=== PATIENT | male | born 1935 | race Asian ===

== ENCOUNTER 2017-02-03 17:51 | Inpatient (IN) | payer MEDICARE, OTHER ==
[~2017-02-03] VITALS: Ht 165.1 cm; Wt 68.1 kg
[2017-02-03] MEDS ORDERED: SOD CHLORIDE 0.9% 1,000 ML IV STA (18:16)
[2017-02-03] MEDS ORDERED: LEVOFLOXACIN 750MG/D5W (PMX) 150 ML IVPB STA (18:18)
--- NOTE | 2017-02-03 18:31 | ERA ---
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 He has also had what seems to be shortness of breath for 2 days without cough. He has had no complaints per , however normally he does not talk much. He was recently admitted to [facility] 12/25-01/02 for similar symptoms. There he was diagnosed with dehydration and acute renal failure but did not require dialysis. He did not have an infection at that time. She states he has not been sleeping well and has been very agitated. She has not noticed any fevers or chills but she has not checked. He is still eating normally but is not having as many bowel movements and is not urinating like he normally does. He did urinate once today. ROS Limited due to patient's altered mental status Medications Home Meds Reported Medications Pramipexole* (Pramipexole*) 1 Mg Tablet, 1 MG PO BID, TAB 02/03/17 Allopurinol* (Allopurinol*) 100 Mg Tablet, 100 MG PO DAILY, TAB 02/03/17 Aspirin* (Aspirin* EC) 81 Mg Tablet.dr, 81 MG PO DAILY, TAB 02/03/17 Carbidopa-Levodopa* (Sinemet*) 25-100 Mg Tab, 1 TAB PO TID, TAB 02/03/17 Cholecalciferol (Vitamin D3) 5,000 Unit/1 Ml Drops, 10 ML PO DAILY, ML 02/03/17 Febuxostat* (Uloric*) 40 Mg Tablet, 40 MG PO DAILY, TAB 02/03/17 Furosemide* (Furosemide*) 40 Mg Tablet, 40 MG PO BID, TAB 02/03/17 Omeprazole* (Omeprazole*) 20 Mg Capsule.dr, 20 MG PO DAILY, #30 CAP 02/03/17 Ursodiol* (Ursodiol*) 300 Mg Capsule, 300 MG PO DAILY, CAP 02/03/17 Benazepril Hcl* (Benazepril Hcl*) 10 Mg Tablet, 10 MG PO DAILY, #30 TAB 02/03/17 Doxazosin Mesylate* (Doxazosin Mesylate*) 2 Mg Tablet, 2 MG PO DAILY, TAB 02/03/17 Quetiapine Fumarate* (Quetiapine Fumarate*) 25 Mg Tablet, 125 MG PO HS, TAB 02/03/17 Amantadine Hcl* (Amantadine Hcl*) 100 Mg Capsule, 100 MG PO BID, #60 CAP 02/03/17 Allergies Allergies: Coded Allergies: No Known Allergy (Unverified , 02/03/17) PMhx/Soc History of Surgery: Yes (gallbladder, prostate) Anesthesia Reaction: No Hx Neurological Disorder: Yes (Alzheimer's, Parkinson's disease) Hx Respiratory Disorders: No Hx Cardiac Disorders: Yes (HTN) Hx Psychiatric Problems: No Hx Miscellaneous Medical Probl: Yes (gout, alzheimers, GERD. CAD) Hx Alcohol Use: No Hx Substance Use: No Hx Tobacco Use: No Smoking Status: Never smoker FmHx Family History: No diabetes Physical Exam Vitals Vital Signs Date Time Temp Pulse Resp B/P Pulse Ox O2 Delivery O2 Flow Rate FiO2 02/03/17 18:09 99.3 93 22 94/64 94 Physical Exam Const: Appears to be in mild distress, hallucinating and reaching for things that are not there, nontoxic Head: Atraumatic Eyes: Normal Conjunctiva, PERRLA ENT: Dry oral mucosa, no intraoral lesions. External ears and nose normal Neck: Supple Resp: Diminished breath sounds bilaterally, however there is poor respiratory effort Cardio: Regular rate and rhythm, no murmurs. Sternotomy scar noted. Abd: Soft, non tender, non distended. Normal bowel sounds Skin: No petechiae or rashes Back: No midline or flank tenderness Ext: No cyanosis, or edema Neur: Awake, alert, mumbling speech, unable to answer any questions, moving all extremities Psych: Anxious, appears to be hallucinating Result Diagram: 02/03/17180902/03/171809 Results 24 hrs Laboratory Tests Test 02/03/17 18:10 02/03/17 18:20 02/03/17 20:20 02/03/17 20:54 White Blood Count 9.210^3/ul Red Blood Count 3.0710^6/ul Hemoglobin 10.0g/dl Hematocrit 30.7% Mean Corpuscular Volume 100.0fl Mean Corpuscular Hemoglobin 32.6pg Mean Corpuscular Hemoglobin Concent 32.6g/dl Red Cell Distribution Width 14.6% Platelet Count 93623^3/UL Mean Platelet Volume 10.9fl Neutrophils % 78.3% Lymphocytes % 12.9% Monocytes % 5.3% Eosinophils % 2.9% Basophils % 0.2% Nucleated Red Blood Cells % 0.0/100WBC Neutrophils # 7.210^3/ul Lymphocytes # 1.210^3/ul Monocytes # 0.510^3/ul Eosinophils # 0.310^3/ul Basophils # 0.010^3/ul Nucleated Red Blood Cells # 0.010^3/ul Prothrombin Time 14.0Sec Prothrombin Time Ratio 1.1 INR International Normalized Ratio 1.08 Activated Partial Thromboplast Time 34.1Sec Sodium Level 145mmol/L Potassium Level 4.2mmol/L Chloride Level 102mmol/L Carbon Dioxide Level 27mmol/L Anion Gap 20 Blood Urea Nitrogen 30mg/dl Creatinine 3.52mg/dl Glucose Level 99mg/dl Calcium Level 10.0mg/dl Total Bilirubin 0.7mg/dl Direct Bilirubin 0.00mg/dl Indirect Bilirubin 0.7mg/dl Aspartate Amino Transf (AST/SGOT) 19IU/L Alanine Aminotransferase (ALT/SGPT) 21IU/L Alkaline Phosphatase 140IU/L Troponin I 0.272ng/ml Total Protein 8.1g/dl Albumin 5.0g/dl Globulin 3.10g/dl Albumin/Globulin Ratio 1.61 Bedside Glucose 85mg/dL Urine Color LT. YELLOW Urine Clarity SL.HAZY Urine pH 6.0 Urine Specific [place] 1.010 Urine Ketones NEGATIVE Urine Nitrite NEGATIVE Urine Bilirubin NEGATIVE Urine Urobilinogen 2.0 E.U./dL Urine Leukocyte Esterase 2+ Urine Microscopic RBC 0-2/HPF Urine WBC Clumps MANY Urine Microscopic WBC >50/HPF Urine Bacteria MANY Urine Hemoglobin TRACE Urine Glucose NEGATIVE% Urine Total Protein NEGATIVE Lactic Acid Level 1.1mmol/L Current Medications Medications (Trade) Dose Ordered Sig/Jaylene Route PRN Reason Start Time Stop Time Status Last Admin Dose Admin Sodium Chloride 1,000 ml @ 1,000 mls/hr Q1H STAT IV 02/03/17 18:16 02/03/17 19:15 DC Levofloxacin/ Dextrose (Levaquin 750 Mg/ D5W 150 ml (Pmx)) 150 ml @ 100 mls/hr ONCE STAT IVPB 02/03/17 18:18 02/03/17 19:47 DC 02/03/17 22:35 Aspirin (Aspirin) 300 mg ONCE ONCE LA 02/03/17 20:30 02/03/17 20:31 DC 02/03/17 22:35 Procedures/MDM EKG: Rate/Rhythm: Normal Sinus Rhythm QRS, ST, T-waves: Right bundle branch block, no changes consistent w/ acute ischemia Impression: No evidence of ischemia or arrhythmia Labs: Mild anemia, hypernatremia, elevated BUN and creatinine, elevated troponin Patient's infectious symptoms have not stabilized and the patient is at risk of rapid decompensation. The patient will be admitted for careful hydration, antibiotic therapy, and infectious source control. Severe Sepsis Assessment: Infectious Source: Pneumonia, UTI End organ damage indicated by: Acute Resp Failure (sat < 92% w/o oxygen) Avian Keeper > 2.0 Severe Sepsis Managment: Blood Cultures X 2 before broad spectrum antibiotics initiated within 3 hours of recognition. 30 ml/kg NS bolus Completed Initial Lactate: normal Repeat Lactate not indicated as initial < 2.0 Critical Care: Time: 40minutes Treatments/Evaluations: Emergent fluid management, while maintaining close respiratory support. Immediate broad spectrum antibiotic therapy. Simultaneous assessment for possible sources in order to direct therapy. Consideration for invasive and chemical support to prevent respiratory or cardiac collapse. Accepting Care Team: Current data and ongoing care discussed. Time: Time of admission Primary Provider: Aung Consulting: none Outstanding Data: none Departure Diagnosis: Primary Impression: Left lower lobe pneumonia Qualified Code: J18.1 - Pneumonia of left lower lobe due to infectious organism Additional Impressions: Acute renal failure superimposed on chronic kidney disease Elevated troponin Condition: Serious TRISH BARON MD Feb 03, 2017 18:31 I considered further perfusion assessment with CVP measurement, SCVO2, bedside ultrasound volume assessment, passive leg raise, trial of further fluid bolus. And proceded with [XOXOXO] Accepting Care Team: Current data and ongoing care discussed. Time: Time of admission Primary Provider: [XOXOXO] Consulting: [XOXOXO] Outstanding Data: none Departure Diagnosis: Primary Impression: Left lower lobe pneumonia Qualified Code: J18.1 - Pneumonia of left lower lobe due to infectious organism Additional Impressions: Acute renal failure superimposed on chronic kidney disease Elevated troponin Condition: Serious EKTRISH SLATRE MD Feb 03, 2017 18:31
[2017-02-03 18:46] LABS: ADD SCAN DIFF NO
[2017-02-03 18:52] LABS: BASOPHILS % 0.2 % (0.0-2.0); EOSINOPHILS # 0.3 10^3/ul (0.0-0.5); EOSINOPHILS % 2.9 % (0.0-7.0); HEMATOCRIT 30.7 % (42.0-52.0); LYMPHOCYTES # 1.2 10^3/ul (0.8-2.9); LYMPHOCYTES % 12.9 % (15.0-51.0); MEAN CORPUSCULAR HEMOGLOBIN 32.6 pg (29.0-33.0); MEAN CORPUSCULAR HGB CONC 32.6 g/dl (32.0-37.0); MEAN PLATELET VOLUME 10.9 fl (7.4-10.4); MONOCYTE # 0.5 10^3/ul (0.3-0.9); MONOCYTES % 5.3 % (0.0-11.0); NEUTROPHIL # 7.2 10^3/ul (1.6-7.5); NEUTROPHILS % 78.3 % (39.0-77.0); PLATELET COUNT 255 10^3/UL (140-415); RED BLOOD COUNT 3.07 10^6/ul (4.70-6.10); RED CELL DISTRIBUTION WIDTH 14.6 % (11.5-14.5); WHITE BLOOD COUNT 9.2 10^3/ul (4.8-10.8)
--- NOTE | 2017-02-03 19:02 | RADRPT ---
PROCEDURE: XR Chest. CLINICAL INDICATION: Altered mental status. TECHNIQUE: PA and Lateral views of the chest were obtained. COMPARISON: None. FINDINGS: Cardiomegaly. Atherosclerotic calcifications in the thoracic aorta. Left lung base air space disea se. No signs of pleural fluid or pneumothorax are seen. The osseous structures and soft tissues are unremarkable. IMPRESSION: Left lung base pneumonia. RPTAT: UU Romain Estrada Physician Date Time Electronically viewed and signed by Romain Estrada Physician on 02/03/2017 19:02 RS/
[2017-02-03 19:05] LABS: INR 1.08; PT RATIO 1.1
[2017-02-03 19:06] LABS: PARTIAL THROMBOPLASTIN TIME 34.1 Sec (25.0-35.0)
[2017-02-03 19:07] LABS: ALBUMIN/GLOBULIN RATIO 1.61; BILIRUBIN,INDIRECT 0.7 mg/dl (0-1.1); BILIRUBIN,TOTAL 0.7 mg/dl (0.2-1.3); CREATININE 3.52 mg/dl (0.61-1.24); POTASSIUM 4.2 mmol/L (3.5-5.1); TOTAL PROTEIN 8.1 g/dl (6.1-8.1)
[2017-02-03] MEDS ORDERED: AMAN100C65 PO (19:12)
[2017-02-03] MEDS ORDERED: DOXA2TAB PO (19:13)
[2017-02-03] MEDS ORDERED: QUET25TA33 PO (19:13)
[2017-02-03] MEDS ORDERED: BENA10TA48 PO (19:14)
[2017-02-03] MEDS ORDERED: URSO300C3 PO (19:14)
[2017-02-03] MEDS ORDERED: OMEP20CA16 PO (19:14)
[2017-02-03] MEDS ORDERED: FURO40TA4 PO (19:15)
[2017-02-03] MEDS ORDERED: FEBU40TA PO (19:16)
[2017-02-03 19:22] LABS: TROPONIN-I 0.272 ng/ml (0.00-0.12)
[2017-02-03] MEDS ORDERED: SIN25100 PO (19:23)
[2017-02-03] MEDS ORDERED: [UNRECOGNIZED DRUG - CODE] PO (19:23)
[2017-02-03] MEDS ORDERED: ASPI-664 PO (19:24)
[2017-02-03] MEDS ORDERED: PRAM1TAB PO (19:24)
[2017-02-03] MEDS ORDERED: ALLO100T PO (19:24)
--- NOTE | 2017-02-03 19:47 | RADRPT ---
PROCEDURE: CT Brain without contrast. CLINICAL INDICATION: Altered mental status TECHNIQUE: A CT of the brain was performed on a [employer] 64-slice CT scanner utilizing axial imaging from the skull base through the vertex without IV contrast. Multiplanar reformatted images were made. Images were reviewed on a PACS workstation. The CTDIvol is 165.19 mGy and the DLP is 15 94.20 mGycm. One of the following 3 dose reduction techniques were used: Automated exposure control; adjustment of the mA and/or kV according to patient size; or use of iterative reconstruction technique. COMPARISON: None available FINDINGS: There is no intracranial hemorrhage, mass effect, or midline shift. No extra-axial fluid collection is seen. The ventricles and sulci are age appropriate. Mild diffuse volume loss is present. Mild decreased attenuation is present in the bilateral subcortical white matter, centrum semiovale, and p eriventricular white matter compatible with mild chronic microvascular ischemic disease. mild vascu lar calcifications are present of the bilateral intracranial internal carotid arteries. The visualized scalp and calvarium are normal. Motion artifact degrades the optimal quality of the study which prompted multiple repeat attempts. The visualized orbits are normal bilaterally. The b ilateral paranasal sinuses, mastoid air cells and middle ear cavities appear clear. IMPRESSION: 1. No evidence of acute intracranial hemorrhage, infarcts, or acute intracranial pathology. 2. Mild chronic microvascular ischemic disease and mild diffuse volume loss 3. Mild atherosclerotic vascular disease RPTAT: HDC .Shala Quiles MD, Date Time Electronically viewed and signed by .Shala Quiles MD, MD on 02/03/2017 19:46 .C/
[2017-02-03] MEDS ORDERED: ASPIRIN 300 MG SUPP PR ONE (20:30)
[2017-02-03 20:32] LABS: ADD UMIC YES; UR BILIRUBIN (Dip) NEGATIVE (NEGATIVE); UR BLOOD (Dip) TRACE (NEGATIVE); UR COLOR LT. YELLOW (YELLOW); UR GLUCOSE (Dip) NEGATIVE (NEGATIVE); UR KETONES (Dip) NEGATIVE (NEGATIVE); UR LEUKOCYTE ESTERASE (Dip) 2+ (NEGATIVE); UR NITRITE (Dip) NEGATIVE (NEGATIVE); UR TOTAL PROTEIN (Dip) NEGATIVE (NEGATIVE); UR UROBILINOGEN (Dip) 2.0 E.U./dL (0.1-1.0)
[2017-02-03 21:18] LABS: UR CLARITY SL.HAZY (CLEAR); URINE RBCS 0-2 /HPF (0)
[2017-02-03 21:19] LABS: UR BACTERIA MANY
[2017-02-03] MEDS ORDERED: ONDANSETRON 4 MG INJ IV PRN (21:30)
[2017-02-03] MEDS ORDERED: ACETAMINOPHEN 325 MG TAB PO PRN (21:30)
[2017-02-03 23:46] VITALS: Ht 165.1 cm; Wt 68.1 kg
[2017-02-03 23:51] VITALS: BP 114/56; RESP 19
[2017-02-04] VITALS (12 sets, daily range): BP systolic 105–160; BP diastolic 55–64; PULSE 79–112; RESP 16–19
[2017-02-04] MEDS ORDERED: NACL 0.9% 3 ML SYG IV SCH
[2017-02-04] MEDS ORDERED: ONDANSETRON 4 MG INJ IV PRN
[2017-02-04] MEDS ORDERED: VANCOMYCIN IV PER PHARMACY XX SCH
[2017-02-04 00:32] LABS: CK-MB 2.03 ng/ml (0.0-2.4); TROPONIN-I 0.298 ng/ml (0.00-0.12)
[2017-02-04] MEDS ORDERED: VANCOMYCIN 1.25 GM in SOD CHLORIDE 0.9% 250 ML IVPB ONE (01:00)
[2017-02-04] MEDS ORDERED: LORAZEPAM 2 MG INJ IV ONE (02:00)
[2017-02-04] MEDS: SOD CHLORIDE 0.9% 1,000 ML IV SCH ×2 (02:23→19:42)
[2017-02-04] MEDS ORDERED: HALOPERIDOL 5 MG INJ IV ONE ×2 (03:49→06:00)
--- NOTE | 2017-02-04 05:14 | HP ---
Date/Time of Note Date/Time of Note DATE: 02/04/17 TIME: 04:56 Assessment/Plan VTE Prophylaxis VTE Prophylaxis Intervention: SCD's Lines/Catheters IV C[facility]ter Type [facility]from [facility]): Peripheral IV Assessment/Plan Chief Complaint/Hosp Course This is an 81-year-old male being admitted to the [facility] floor for: #1 altered mental status: This likely is multifactorial secondary to patient's underlying Parkinson's disease as well as possible underlying infections at this time. Patient is a DNR. At the current time we will treat for the underlying pneumonia/UTI. With IV antibiotics. Provide IV fluid hydration. Swallow evaluation. #2 pneumonia: Chest x-ray shows infiltrate in the left lower lung field. At the current time patient is afebrile with normal white blood cell count. Though the is unsure whether the patient has received antibiotics within the last 90 days since he has been in the hospital within the past 90 days. Right now will cover for hospital-acquired pneumonia. Will put patient on Levaquin and vancomycin renally dosed. #3 urinary tract infection: Patient has positive urinalysis. Patient currently on Levaquin right now. #4 elevated troponins: does state that she has a multiple times and he denied any further chest pain. Will continue to trend troponins. This likely could be secondary to patient's underlying chronic kidney disease. However, secondary to his history will get cardiology consult. #5 Parkinson's: At the current time will hold patient's current medications until patient passes swallow eval. #6 coronary artery disease: Patient is status post CABG. Will resume home medications once patient is able to tolerate p.o. via swallow eval. #7 chronic kidney disease: Patient has a creatinine of 3.52, states that during his last hospital stay it was thought that he may have needed dialysis however he ended up not needing to go under dialysis. Will consult nephrology for further management. Renally dose medications. #8 DVT and GI prophylaxis: SCDs, Protonix Further treatment strategy will be implemented as per the clinical course. Of note patient is DNR. The did bring advance directives with her. Patient also is not to have any tube feeding as per the advance directive, however any further medical management needs to be discussed with the . Problems: HPI/ROS Admit Date/Time Admit Date/Time Feb 03, 2017 at 21:10 Hx of Present Illness Chief complaint: Altered mental status 3 days 81-year-old male with a history of CAD status post CABG with CHF, CKD stage III , hyperlipidemia, hypertension and severe Parkinson's disease brought in by ambulance with his for altered mental status for the past 2-3 days. He has also had what seems to be shortness of breath for 2 days without cough. He has had no complaints per , however normally he does not talk much. He was recently admitted to [facility] 12/25-01/02 for similar symptoms. There he was diagnosed with dehydration and acute renal failure but did not require dialysis. He did not have an infection at that time. She states he has not been sleeping well and has been very agitated. She has not noticed any fevers or chills but she has not checked. He is still eating normally but is not having as many bowel movements and is not urinating like he normally does. He did urinate once today. Allergies: NKDA Medications: See MAR ROS Subjective hx not possible: pt critical, pt critical status, other (Patient unable to probably verbalize secondary to confusion, delirium) PMH/Family/Social Past Medical History Coronary artery disease, gout, Parkinson's, CHF, chronic kidney disease Past Surgical History Prostate surgery, cholecystectomy, CABG Family History Significant Family History: heart disease (Sister), diabetes (Sister) Social History Alcohol Use: none Smoking Status: Never smoker Drug Use: none Exam/Review of Systems Vital Signs Vitals Vital Signs Date Time Temp Pulse Resp B/P Pulse Ox O2 Delivery O2 Flow Rate FiO2 02/04/17 04:04 112 02/04/17 03:57 98.0 18 119/55 97 02/04/17 01:15 Nasal Cannula 2.0 Exam Exam General: Patient appears confused he is awake. HEENT: Atraumatic, normocephalic. The pupils are equal, round and reactive. Neck: Supple with full range of motion. No rigidity or meningismus Chest: Nontender Lungs: Decreased breath sounds at the bases, no rales or wheezes appreciated Heart: Normal S1-S2, Regular rhythm and rate. Abdomen: Soft , nontender, nondistended , bowel sounds are present. No guarding no rebound tenderness , Extremities: Normal to inspection, no edema no cyanosis Neurologic: Patient awake however he does appear confused and is not able to answer questions appropriately. Patient at baseline is able to answer questions as per the . Labs Result Diagram: 02/03/17180902/03/17 181 Medications Medications Current Medications Sodium Chloride (NS) 1,000 ml @ 50 mls/hr Q20H IV Last administered on t 02:23; Admin Dose 50 MLS/HR; Start 02/03/17 at 23:42 Ondansetron HCl (Zofran Inj) 4 mg Q6H PRN IV NAUSEA AND/OR VOMITING; Start at 00:00 Pantoprazole 40 mg 40 mg DAILY@06 IV ; Start 02/04/17 at 06:00 Levofloxacin/ Dextrose (Levaquin 500mg/ D5W 100 ml (Pmx)) 100 ml @ 100 mls/hr Q48H IVPB ; Start 02/05/17 at 22:30 FANNIE URFF Feb 04, 2017 05:09
[2017-02-04] MEDS: PANTOPRAZOLE 40 MG INJ IV SCH (06:20)
[2017-02-04 07:53] LABS: ADD SCAN DIFF NO
[2017-02-04 07:56] LABS: BASOPHILS % 0.2 % (0.0-2.0); EOSINOPHILS # 0.2 10^3/ul (0.0-0.5); EOSINOPHILS % 1.6 % (0.0-7.0); HEMATOCRIT 26.8 % (42.0-52.0); HEMOGLOBIN 8.6 g/dl (14.0-18.0); LYMPHOCYTES # 0.8 10^3/ul (0.8-2.9); LYMPHOCYTES % 7.6 % (15.0-51.0); MEAN CORPUSCULAR HEMOGLOBIN 32.5 pg (29.0-33.0); MEAN CORPUSCULAR HGB CONC 32.1 g/dl (32.0-37.0); MEAN CORPUSCULAR VOLUME 101.1 fl (82.0-101.0); MEAN PLATELET VOLUME 10.8 fl (7.4-10.4); MONOCYTE # 0.4 10^3/ul (0.3-0.9); NEUTROPHIL # 9.2 10^3/ul (1.6-7.5); PLATELET COUNT 206 10^3/UL (140-415); RED BLOOD COUNT 2.65 10^6/ul (4.70-6.10); RED CELL DISTRIBUTION WIDTH 14.8 % (11.5-14.5); WHITE BLOOD COUNT 10.7 10^3/ul (4.8-10.8)
[2017-02-04 08:25] LABS: ALBUMIN 4.4 g/dl (3.3-4.9); ALBUMIN/GLOBULIN RATIO 1.62; BILIRUBIN,INDIRECT 0.7 mg/dl (0-1.1); BILIRUBIN,TOTAL 0.7 mg/dl (0.2-1.3); CALCIUM 9.3 mg/dl (8.4-10.2); CREATININE 3.61 mg/dl (0.61-1.24); POTASSIUM 4.4 mmol/L (3.5-5.1); TOTAL PROTEIN 7.1 g/dl (6.1-8.1)
[2017-02-04 09:54] LABS: CK-MB 1.95 ng/ml (0.0-2.4); TROPONIN-I 0.233 ng/ml (0.00-0.12)
--- NOTE | 2017-02-04 13:14 | CONS ---
Date/Time of Note Date/Time of Note DATE: 02/04/17 TIME: : Assessment/Plan Assessment/Plan Additional Assessment/Plan 81 yo Male with 1) AMS 2) PNA 3) CARLOS on CKD 4) HTN 5) Parkinson Dz Pt with Carlos on CKD likely stage III CKD in the setting of decreased PO intake and Sepsis R/o ATN Cont IVFS, will monitor UO, Electrolytes and renal function closely with current Rx and plan Will check urine studies and imaging. F/u repeat labs in am. Thank you for the opportunity to participate in the care of MR Rea. Consultation Date/Type/Reason Admit Date/Time Feb 03, 2017 at 21:10 Date of Consultation: Feb 04, 2017 Type of Consultation: Renal Reason for Consultation CARLOS Referring Provider: FANNIE RUFF Hx of Present Illness 81-year-old male with a history of CKD, CAD status post CABG with CHF, CKD stage III, hyperlipidemia, hypertension and severe Parkinson's disease brought in by ambulance with his for altered mental status for the past 2-3 days. He has also had to be shortness of breath for 2 days without cough. Found to have possibly PNA and admitted to [facility].Pt was recently at [facility] and at that time cr approx 1.68. During this admission found to have elevated Bun/Cr, nephrology consulted for CARLOS on CKD. Constitutional: requiring O2 Respiratory: shortness of breath Gastrointestinal: decreased appetite Neurologic: confusion Past Medical History Medical History: hypertension, renal disease Family History Significant Family History: no pertinent family hx Social History Alcohol Use: none Smoking Status: Never smoker Drug Use: none Exam/Review of Systems Vital Signs Vitals Vital Signs Date Time Temp Pulse Resp B/P Pulse Ox O2 Delivery O2 Flow Rate FiO2 02/04/17 12:02 82 02/04/17 11:56 98.3 19 105/59 100 02/04/17 08:00 Nasal Cannula 2.0 Exam Constitutional: alert, distress Psych: confusion Eyes: EOMI ENMT: mucosa pink and moist Neck: jvd Respiratory: crackles/rales, diminished breath sounds, labored breathing Cardiovascular: edema, regular rate and rhythm Gastrointestinal: non-tender, rebound or guarding Extremities: edema Neurological: confused, lethargic Skin: diaphoresis Results Result Diagram: 02/04/17 0647 02/04/17 0647 Results 24 hrs Laboratory Tests Test 02/03/17 18:10 02/03/17 18:20 02/03/17 20:20 02/03/17 20:54 White Blood Count 9.2 Red Blood Count 3.07 L Hemoglobin 10.0 L Hematocrit 30.7 L Mean Corpuscular Volume 100.0 Mean Corpuscular Hemoglobin 32.6 Mean Corpuscular Hemoglobin Concent 32.6 Red Cell Distribution Width 14.6 H Platelet Count 255 Mean Platelet Volume 10.9 H Neutrophils % 78.3 H Lymphocytes % 12.9 L Monocytes % 5.3 Eosinophils % 2.9 Basophils % 0.2 Nucleated Red Blood Cells % 0.0 Neutrophils # 7.2 Lymphocytes # 1.2 Monocytes # 0.5 Eosinophils # 0.3 Basophils # 0.0 Nucleated Red Blood Cells # 0.0 Prothrombin Time 14.0 Prothrombin Time Ratio 1.1 INR International Normalized Ratio 1.08 Activated Partial Thromboplast Time 34.1 Sodium Level 145 H Potassium Level 4.2 Chloride Level 102 Carbon Dioxide Level 27 Anion Gap 20 H Blood Urea Nitrogen 30 H Creatinine 3.52 H Glucose Level 99 Calcium Level 10.0 Total Bilirubin 0.7 Direct Bilirubin 0.00 Indirect Bilirubin 0.7 Aspartate Amino Transf (AST/SGOT) 19 Alanine Aminotransferase (ALT/SGPT) 21 Alkaline Phosphatase 140 H Troponin I 0.272 *H Total Protein 8.1 Albumin 5.0 H Globulin 3.10 Albumin/Globulin Ratio 1.61 Bedside Glucose 85 Urine Color LT. YELLOW Urine Clarity SL.HAZY Urine pH 6.0 Urine Specific [place] 1.010 Urine Ketones NEGATIVE Urine Nitrite NEGATIVE Urine Bilirubin NEGATIVE Urine Urobilinogen 2.0 E.U./dL H Urine Leukocyte Esterase 2+ H Urine Microscopic RBC 0-2 Urine WBC Clumps MANY Urine Microscopic WBC >50 Urine Bacteria MANY Urine Hemoglobin TRACE Urine Glucose NEGATIVE Urine Total Protein NEGATIVE Lactic Acid Level 1.1 Test 02/03/17 23:00 02/03/17 23:20 02/04/17 00:50 02/04/17 06:47 Lactic Acid Level 1.2 1.3 Creatine Kinase 135 218 H Creatine Kinase Index 1.5 0.9 Creatinine Kinase MB (Mass) 2.03 1.95 Troponin I 0.298 *H 0.233 *H White Blood Count 10.7 Red Blood Count 2.65 L Hemoglobin 8.6 L Hematocrit 26.8 L Mean Corpuscular Volume 101.1 H Mean Corpuscular Hemoglobin 32.5 Mean Corpuscular Hemoglobin Concent 32.1 Red Cell Distribution Width 14.8 H Platelet Count 206 Mean Platelet Volume 10.8 H Neutrophils % 86.0 H Lymphocytes % 7.6 L Monocytes % 4.0 Eosinophils % 1.6 Basophils % 0.2 Nucleated Red Blood Cells % 0.0 Neutrophils # 9.2 H Lymphocytes # 0.8 Monocytes # 0.4 Eosinophils # 0.2 Basophils # 0.0 Nucleated Red Blood Cells # 0.0 Sodium Level 147 H Potassium Level 4.4 Chloride Level 109 Carbon Dioxide Level 24 Anion Gap 18 H Blood Urea Nitrogen 31 H Creatinine 3.61 H Glucose Level 72 Calcium Level 9.3 Total Bilirubin 0.7 Direct Bilirubin 0.00 Indirect Bilirubin 0.7 Aspartate Amino Transf (AST/SGOT) 18 Alanine Aminotransferase (ALT/SGPT) 23 Alkaline Phosphatase 123 H Total Protein 7.1 # Albumin 4.4 Globulin 2.70 Albumin/Globulin Ratio 1.62 Medications Medications Current Medications Sodium Chloride (NS) 1,000 ml @ 50 mls/hr Q20H IV Last administered on 02:23; Admin Dose 50 MLS/HR; Start 02/03/17 at 23:42 Ondansetron HCl (Zofran Inj) 4 mg Q6H PRN IV NAUSEA AND/OR VOMITING; Start at 00:00 Pantoprazole 40 mg 40 mg DAILY@06 IV Last administered on 02/04/17 06:20; Admin Dose 40 MG; Start 02/04/17 at 06:00 Levofloxacin/ Dextrose (Levaquin 500mg/ D5W 100 ml (Pmx)) 100 ml @ 100 mls/hr Q48H IVPB ; Start 02/05/17 at 22:30 Procedures Procedures PROCEDURE: XR Chest. CLINICAL INDICATION: Altered mental status. TECHNIQUE: PA and Lateral views of the chest were obtained. COMPARISON: None. FINDINGS: Cardiomegaly. Atherosclerotic calcifications in the thoracic aorta. Left lung base air space disease. No signs of pleural fluid or pneumothorax are seen. The osseous structures and soft tissues are unremarkable. IMPRESSION: Left lung base pneumonia. RPTAT: UU Romain Estrada Physician Date Time Electronically viewed and signed by Romain Estrada Physician on 02/03/2017 19:02 ALYSSA STAUFFER MD Feb 04, 2017 13:14
--- NOTE | 2017-02-04 13:19 | CONS ---
Date/Time of Note Date/Time of Note DATE: 02/04/17 TIME: 13:12 Assessment/Plan Assessment/Plan Additional Assessment/Plan # altered mental status: This likely is multifactorial secondary to patient's underlying Parkinson's disease as well as possible underlying infections at this time. # elevated troponins- low grade and decreased, not c/w ACS and likely due to CKD with acute illness. Recent echo at [facility] normal LVEF # CAD s/p CABG # PNA- probable # anemia # urinary tract infection: on Abx # Parkinson's # CKD with recent CARLOS # DNR >> no acute cardiac issues, would continue on cardiac meds >> ASA , statin PO when able >> No need for echo as recently done >> if possible maintain h/h to avoid further supply/demand mismatch >> consider BB if BP tolerates >> Will see as needed. Thank you Consultation Date/Type/Reason Admit Date/Time Feb 03, 2017 at 21:10 Type of Consultation: Cardiology Hx of Present Illness This is an unfortuante eldelry [place] man who has numerous medical problems and recently at [facility] with CARLOS and UTI. He has underlying Parkinsons and CAD with prior CABG. We were asked to see pt for cardiology consultation given elevated troponin. However the pt has not had any CP or SOB. He does report coughing and weakness and [place]. He has declined recently with poor po intake as well. No syncope is reported. Constitutional: disoriented, no complaints, poor po Eyes: no complaints ENT: no complaints Respiratory: no complaints Cardiovascular: no complaints Gastrointestinal: decreased appetite Genitourinary: bleeding Musculoskeletal: no complaints Skin: no complaints Neurologic: confusion Endocrine: no complaints Lymphatic: no complaints Psychological: depression, no complaints Past Medical History Medical History: coronary artery disease, hypertension, renal disease Family History Significant Family History: no pertinent family hx Social History Alcohol Use: none Smoking Status: Never smoker Drug Use: none Exam/Review of Systems Vital Signs Vitals Vital Signs Date Time Temp Pulse Resp B/P Pulse Ox O2 Delivery O2 Flow Rate FiO2 02/04/17 12:02 82 02/04/17 11:56 98.3 19 105/59 100 02/04/17 08:00 Nasal Cannula 2.0 Exam Constitutional: non-verbal Psych: nl mood/affect, no complaints Head: atraumatic, normocephalic Eyes: EOMI, nl conjunctiva ENMT: nl external ears & nose Neck: non-tender, supple, No jvd Respiratory: clear to auscultation, congested cough Cardiovascular: regular rate and rhythm Gastrointestinal: nl liver, spleen, non-tender, soft Musculoskeletal: nl extremities to inspection, No nl gait and stance Extremities: normal pulses Neurological: confused, lethargic Results Result Diagram: 02/04/17 0647 02/04/17 0647 Results 24 hrs Laboratory Tests Test 02/03/17 18:10 02/03/17 18:20 02/03/17 20:20 02/03/17 20:54 White Blood Count 9.2 Red Blood Count 3.07 L Hemoglobin 10.0 L Hematocrit 30.7 L Mean Corpuscular Volume 100.0 Mean Corpuscular Hemoglobin 32.6 Mean Corpuscular Hemoglobin Concent 32.6 Red Cell Distribution Width 14.6 H Platelet Count 255 Mean Platelet Volume 10.9 H Neutrophils % 78.3 H Lymphocytes % 12.9 L Monocytes % 5.3 Eosinophils % 2.9 Basophils % 0.2 Nucleated Red Blood Cells % 0.0 Neutrophils # 7.2 Lymphocytes # 1.2 Monocytes # 0.5 Eosinophils # 0.3 Basophils # 0.0 Nucleated Red Blood Cells # 0.0 Prothrombin Time 14.0 Prothrombin Time Ratio 1.1 INR International Normalized Ratio 1.08 Activated Partial Thromboplast Time 34.1 Sodium Level 145 H Potassium Level 4.2 Chloride Level 102 Carbon Dioxide Level 27 Anion Gap 20 H Blood Urea Nitrogen 30 H Creatinine 3.52 H Glucose Level 99 Calcium Level 10.0 Total Bilirubin 0.7 Direct Bilirubin 0.00 Indirect Bilirubin 0.7 Aspartate Amino Transf (AST/SGOT) 19 Alanine Aminotransferase (ALT/SGPT) 21 Alkaline Phosphatase 140 H Troponin I 0.272 *H Total Protein 8.1 Albumin 5.0 H Globulin 3.10 Albumin/Globulin Ratio 1.61 Bedside Glucose 85 Urine Color LT. YELLOW Urine Clarity SL.HAZY Urine pH 6.0 Urine Specific [place] 1.010 Urine Ketones NEGATIVE Urine Nitrite NEGATIVE Urine Bilirubin NEGATIVE Urine Urobilinogen 2.0 E.U./dL H Urine Leukocyte Esterase 2+ H Urine Microscopic RBC 0-2 Urine WBC Clumps MANY Urine Microscopic WBC >50 Urine Bacteria MANY Urine Hemoglobin TRACE Urine Glucose NEGATIVE Urine Total Protein NEGATIVE Lactic Acid Level 1.1 Test 02/03/17 23:00 02/03/17 23:20 02/04/17 00:50 02/04/17 06:47 Lactic Acid Level 1.2 1.3 Creatine Kinase 135 218 H Creatine Kinase Index 1.5 0.9 Creatinine Kinase MB (Mass) 2.03 1.95 Troponin I 0.298 *H 0.233 *H White Blood Count 10.7 Red Blood Count 2.65 L Hemoglobin 8.6 L Hematocrit 26.8 L Mean Corpuscular Volume 101.1 H Mean Corpuscular Hemoglobin 32.5 Mean Corpuscular Hemoglobin Concent 32.1 Red Cell Distribution Width 14.8 H Platelet Count 206 Mean Platelet Volume 10.8 H Neutrophils % 86.0 H Lymphocytes % 7.6 L Monocytes % 4.0 Eosinophils % 1.6 Basophils % 0.2 Nucleated Red Blood Cells % 0.0 Neutrophils # 9.2 H Lymphocytes # 0.8 Monocytes # 0.4 Eosinophils # 0.2 Basophils # 0.0 Nucleated Red Blood Cells # 0.0 Sodium Level 147 H Potassium Level 4.4 Chloride Level 109 Carbon Dioxide Level 24 Anion Gap 18 H Blood Urea Nitrogen 31 H Creatinine 3.61 H Glucose Level 72 Calcium Level 9.3 Total Bilirubin 0.7 Direct Bilirubin 0.00 Indirect Bilirubin 0.7 Aspartate Amino Transf (AST/SGOT) 18 Alanine Aminotransferase (ALT/SGPT) 23 Alkaline Phosphatase 123 H Total Protein 7.1 # Albumin 4.4 Globulin 2.70 Albumin/Globulin Ratio 1.62 Medications Medications Current Medications Sodium Chloride (NS) 1,000 ml @ 50 mls/hr Q20H IV Last administered on 02:23; Admin Dose 50 MLS/HR; Start 02/03/17 at 23:42 Ondansetron HCl (Zofran Inj) 4 mg Q6H PRN IV NAUSEA AND/OR VOMITING; Start at 00:00 Pantoprazole 40 mg 40 mg DAILY@06 IV Last administered on 02/04/17 06:20; Admin Dose 40 MG; Start 02/04/17 at 06:00 Levofloxacin/ Dextrose (Levaquin 500mg/ D5W 100 ml (Pmx)) 100 ml @ 100 mls/hr Q48H IVPB ; Start 02/05/17 at 22:30 MANOHAR VILLEGAS MD Feb 04, 2017 13:19
[2017-02-04] MEDS ORDERED: ATORVASTATIN 20 MG TAB PO ONE (13:30)
[2017-02-04] MEDS: ASPIRIN 81 MG TAB PO SCH (13:30)
[2017-02-05] VITALS (10 sets, daily range): BP systolic 137–149; BP diastolic 60–67; PULSE 76–90; RESP 16–20
[2017-02-05] MEDS: PANTOPRAZOLE 40 MG INJ IV SCH (05:40)
[2017-02-05] MEDS: ASPIRIN 81 MG TAB PO SCH (09:00)
[2017-02-05] MEDS: SOD CHLORIDE 0.9% 1,000 ML IV SCH (10:10)
--- NOTE | 2017-02-05 10:59 | RADRPT ---
Echocardiogram Report Patient Name: SISSY CHILDS Gender: Male Date: 1935 Study Date: 04-Feb-2017 [employer] Technician: Katiuska Chilel [facility] Location: 5540 Ref. Physician: FANNIE RUFF Quality: Adequate Procedures: Transthoracic echocardiogram with complete 2D, M-Mode, and doppler examination. Indications: elevated troponins. 2D/M Mode Doppler Measurement Value Normal Ranges Measurement Value Normal Ranges LVIDd 2D 3.9 3.5 - 5.6 cm OLE Vmax 1.8 cm2 LVIDs 2D 2.1 2.1 - 4.1 cm OLE VTI 2.5 cm2 FS 2D 47.0 % AV Mean Ji 1.2 m/sec LVPWd 2D 1.0 0.6 - 1.1 cm AV Mean PG 7.0 mmHg IVSd 2D 1.1 0.6 - 1.1 cm AV Peak Ji 2.0 m/sec IVS/LVPW 2D 1.1 AV Peak PG 16.0 mmHg AoR Diam 2D 2.9 2.0 - 3.7 cm AV VTI 30.1 cm LA/Ao 2D 1 0 - 1 AI Peak PG 48.0 mmHg EDV 2D 58.9 cm3 AI Peak Ji 3.5 m/sec ESV 2D 8.7 cm3 AI PHT 431.0 msec LA Dimen 2D 3.3 2.3 - 4.0 cm LVOT Mean Ji 0.8 m/sec LVOT Diam 2.0 cm LVOT Mean PG 3.0 mmHg LVOT Area 3.1 cm2 LVOT Peak Ji 1.2 m/sec LVOT Peak PG 6.0 mmHg LVOT VTI 24.3 cm MV E Peak Ji 0.6 m/sec MV A Peak Ji 1.0 m/sec MV E/A 0.6 MV Decel Time 183 msec MV E/A 0.6 TR Peak Ji 2.3 m/sec TR Peak PG 21.0 mmHg RVSP 29.0 mmHg Findings Left Ventricle: Normal left ventricular systolic function. Normal left ventricular cavity size. Mild concentric left ventricular hypertrophy. Ejection fraction is visually estimated at 65 %. Tissue Doppler/Mitral Doppler indices are consistent with impaired relaxation (Stage I diastolic dysfunction). E/E`=9. normal e/e` ratio c/w normal LAQ pressure. Mild Paradoxical septal motion c/w post op changes or conduction delay. Right Ventricle: Normal right ventricular size. Normal right ventricular systolic function. Left Atrium: The left atrium is normal in size. Right Atrium: The right atrium is normal in size. Mitral Valve: Mild mitral annular calcification. Aortic Valve: Aortic valve Max velocity 2.01 m/sec. Max PG 16.00 mmHg. Mean PG 7.00 mmHg. Aortic valve area 2.50 cm2. Aortic sclerosis without stenosis. Trileaflet aortic valve. Mild aortic valve regurgitation. t1/[id number].Marked Aortic Sclerosis without significant stenosis. Tricuspid Valve: Normal appearance of the tricuspid valve. Estimated peak PA systolic pressure 29 mmHg. There is trace tricuspid regurgitation. No significant Pulmonary HTN. Pulmonic Valve: Pulmonic valve not well visualized. Pericardium: Normal pericardium with no significant pericardial effusion. Aorta: Normal aortic root. IVC: Normal size and normal respiratory collapse consistent with normal right atrial pressure. Conclusions 1.Normal left ventricular systolic function. Normal left ventricular cavity size. Mild concentric left ventricular hypertrophy. Ejection fraction is visually estimated at 65 %. Tissue Doppler/Mitral Doppler indices are consistent with impaired relaxation (Stage I diastolic dysfunction). E/E`=9. normal e/e` ratio c/w normal LAQ pressure. Mild Paradoxical septal motion c/w post op changes or conduction delay. 2.The left atrium is normal in size. 3.Mild mitral annular calcification. 4.Aortic valve Max velocity 2.01 m/sec. Max PG 16.00 mmHg. Mean PG 7.00 mmHg. Aortic valve area 2.50 cm2. Aortic sclerosis without stenosis. Trileaflet aortic valve. Mild aortic valve regurgitation. t1/1=[id number].Marked Aortic Sclerosis without significant stenosis. 5.Normal appearance of the tricuspid valve. Estimated peak PA systolic pressure 29 mmHg. There is trace tricuspid regurgitation. No significant Pulmonary HTN. 6.Normal pericardium with no significant pericardial effusion. 7.Normal size and normal respiratory collapse consistent with normal right atrial pressure. 8.No Vegetation, masses, or thrombi seen. Electronically Signed By: Mohsen Black 05-Feb-2017 10:59:23 -0700 Patient Name: SISSY CHILDS Study Date: 04-Feb-2017 [id number]
[2017-02-05] MEDS ORDERED: hydrALAzine 20 MG INJ IV PRN (18:00)
--- NOTE | 2017-02-05 18:26 | PN ---
DATE: 02/05/2017 SUBJECTIVE DATA: The patient is more awake and alert. The patient passed the swallow evaluation and has been started on a diet. OBJECTIVE DATA: VITAL SIGNS: Temperature 98.0, pulse rate 82, respiratory rate 20, blood pressure 146/67, oxygen saturation 100% on room air. GENERAL: This is an 81-year-old male patient lying in bed in no apparent distress. HEENT: Head normocephalic and atraumatic. Eyes: Anicteric sclerae. Conjunctivae clear. ENT: Nasal septum is midline. Oral mucosa is dry. Poor dentition. NECK: Supple. No JVD noticed. RESPIRATORY: Bilaterally diminished breath sounds. No adventitious breath sounds heard. No use of accessory muscles for respiration. CARDIAC: S1, S2 heard. No murmurs. ABDOMEN: Soft, nontender and nondistended. Bowel sounds positive in all 4 quadrants. GENITOURINARY: Deferred. EXTREMITIES: No cyanosis, no clubbing, no edema. Peripheral pulses are palpable. NEUROLOGIC: The patient is awake and alert. The patient has underlying Parkinson's disease. LABORATORY AND DIAGNOSTIC DATA: WBC 10.7, hemoglobin 8.6, hematocrit 26.8, platelet count 206. Sodium 147, potassium 4.4, chloride 109, carbon dioxide 25 , anion gap 18, BUN 31, creatinine 3.61, glucose 72, calcium 9.3. ASSESSMENT AND PLAN: 1. Non-ST elevation myocardial infarction. Most probably type 2 event in the setting of underlying worsening renal function and underlying sepsis. Status post evaluation by cardiology. 2-D echocardiogram showing preserved left ventricular ejection fraction. 2. Acute on chronic kidney injury. Continue IV fluids. Monitor intake and output closely. Avoid nephrotoxic medications. Being followed by nephrology. 3. Sepsis with underlying urinary tract infection and healthcare-associated pneumonia. No evidence of any septic shock. Continue antibiotics. 4. Acute encephalopathy. Most probably metabolic in origin. Brain CT scan negative for any acute intracranial findings. The patient is back to baseline with antibiotic management. 5. Parkinson's disease. Continue anti-parkinsonian medications. 6. Essential hypertension. We will resume the patient's antihypertensives. 7. Normocytic normochromic anemia. Etiology unclear. Will monitor hemoglobin and hematocrit closely. We will transfuse as needed. 8. Fluid, electrolytes and nutrition. Mechanical soft diet with thin liquids, no straw. 9. Deep venous thrombosis prophylaxis. Bilateral sequential compression devices. 10. Gastrointestinal prophylaxis. Proton pump inhibitors. PLAN: Continue antibiotics. Monitor renal function. Monitor on telemetry floor. Case discussed with Dr. Oropeza. DINORA OROPEZA MD, AM/KEIRY Conf#: [id number] DID#: [id number] MTDD
[2017-02-05] MEDS: PRAMIPEXOLE 1 MG TAB PO SCH (21:32)
[2017-02-05] MEDS: CARBIDOPA/LEVODOPA (25/100) TAB PO SCH (21:32)
[2017-02-05] MEDS: DOXAZOSIN 2 MG TAB PO SCH (21:33)
[2017-02-05] MEDS: QUETIAPINE 25 MG TAB PO SCH (21:33)
[2017-02-05] MEDS: AMANTADINE 100 MG CAP PO SCH (21:37)
[2017-02-05] MEDS: LEVOFLOXACIN 500MG/D5W (PMX) 100 ML IVPB SCH (21:37)
--- NOTE | 2017-02-05 22:15 | CONS ---
Date/Time of Note Date/Time of Note DATE: 02/05/17 TIME: 22:03 Assessment/Plan Assessment/Plan Chief Complaint/Hosp Course Spoke to at bedside Problems: Additional Assessment/Plan Will check 24 hr urine for creat clearance & got CT scan done already Will request release of records from [facility] Will empirically begin IV Iron & DC if sat is normal Cont'd Hospitalization Reason: Pt followed by renal in [place] Consultation Date/Type/Reason Admit Date/Time Feb 03, 2017 at 21:10 Initial Consult Date 02/04/17 Type of Consultation: Renal Referring Provider: FANNIE RUFF 24 HR Interval Summary Free Text/Dictation Poor Historian Exam/Review of Systems Vital Signs Vitals Vital Signs Date Time Temp Pulse Resp B/P Pulse Ox O2 Delivery O2 Flow Rate FiO2 02/05/17 20:00 98.7 88 18 143/64 95 02/05/17 08:00 Nasal Cannula 3.0 Intake and Output 02/04/17 02/04/17 02/05/17 15:00 23:00 07:00 Intake Total 800 ml Output Total 400 ml 450 ml Balance 400 ml -450 ml Exam Pt is lying comfortably in bed Constitutional: alert, oriented, well developed Psych: nl mood/affect, no complaints Head: atraumatic, normocephalic Eyes: EOMI, PERRL, nl conjunctiva, nl lids, nl sclera ENMT: nl external ears & nose, nl lips & teeth, nl nasal mucosa & septum Neck: non-tender, supple Respiratory: clear to auscultation, normal air movement Cardiovascular: nl pulses, regular rate and rhythm Gastrointestinal: nl liver, spleen, non-tender, soft Genitourinary - Male: other (Pineda cath in place) Musculoskeletal: nl extremities to inspection, nl gait and stance Extremities: normal pulses Neurological: STATION USHER II-XII intact, nl mental status, nl speech, nl strength Skin: nl turgor, No rash or lesions Lymph: nl lymph nodes Results Note Hct has dropped rather precipitously Iron Studies pending Result Diagram: 02/04/17 0647 02/04/17 0647 Results 24 hrs Laboratory Tests Test 02/05/17 17:00 Urine Random Creatinine 104.74 Urine Random Sodium 85 Medications Medications Current Medications Sodium Chloride (NS) 1,000 ml @ 50 mls/hr Q20H IV Last administered on 10:10; Admin Dose 50 MLS/HR; Start 02/03/17 at 23:42 Ondansetron HCl (Zofran Inj) 4 mg Q6H PRN IV NAUSEA AND/OR VOMITING; Start at 00:00 Pantoprazole 40 mg 40 mg DAILY@06 IV Last administered on 02/05/17 05:40; Admin Dose 40 MG; Start 02/04/17 at 06:00 Levofloxacin/ Dextrose (Levaquin 500mg/ D5W 100 ml (Pmx)) 100 ml @ 100 mls/hr Q48H IVPB Last administered on 02/05/17 21:37; Admin Dose 100 MLS/HR; Start at 22:30 Aspirin (Aspirin) 81 mg DAILY PO ; Start 02/04/17 at 13:30 Miscellaneous Information (*Rx Drug Level Order Reminder*) VANCO RANDOM W/ AM LABS... ONCE ONCE XX ; Start 02/06/17 at 05:00; Stop 02/06/17 at 05:01 Hydralazine HCl (Apresoline) 10 mg Q6H PRN IV SBP>160; Start 02/05/17 at 18:00 Amantadine HCl (Symmetrel) 100 mg BID PO Last administered on 02/05/17 21:37; Admin Dose 100 MG; Start 02/05/17 at 21:00 Carbidopa/Levodopa (Sinemet (25/ 100)) 1 tab TID PO Last administered on 21:32; Admin Dose 1 TAB; Start 02/05/17 at 21:00 Doxazosin Mesylate (Cardura) 2 mg QHS PO Last administered on 02/05/17 21:33; Admin Dose 2 MG; Start 02/05/17 at 21:00 Pramipexole (Mirapex) 1 mg BID PO Last administered on 02/05/17 21:32; Admin Dose 1 MG; Start 02/05/17 at 21:00 Quetiapine Fumarate (Seroquel) 125 mg HS PO Last administered on 02/05/17 21: 33; Admin Dose 125 MG; Start 02/05/17 at 21:00 Ursodiol (Actigall) 300 mg DAILY PO ; Start 02/06/17 at 09:00 JASPER JAUREGUI MD Feb 05, 2017 22:14
[2017-02-06] VITALS (14 sets, daily range): BP systolic 132–155; BP diastolic 42–88; PULSE 75–110; RESP 17–18
[2017-02-06] MEDS ORDERED: LORAZEPAM 2 MG INJ IV ONE ×3 (00:30→22:00)
[2017-02-06] MEDS: SOD CHLORIDE 0.9% 1,000 ML IV SCH ×2 (05:25→19:57)
[2017-02-06] MEDS: PANTOPRAZOLE 40 MG INJ IV SCH (05:27)
[2017-02-06 05:47] LABS: ADD SCAN DIFF NO
[2017-02-06 06:13] LABS: BASOPHILS % 0.1 % (0.0-2.0); EOSINOPHILS # 0.4 10^3/ul (0.0-0.5); EOSINOPHILS % 5.2 % (0.0-7.0); HEMATOCRIT 25.9 % (42.0-52.0); HEMOGLOBIN 8.3 g/dl (14.0-18.0); LYMPHOCYTES % 14.8 % (15.0-51.0); MEAN CORPUSCULAR HEMOGLOBIN 33.1 pg (29.0-33.0); MEAN CORPUSCULAR VOLUME 103.2 fl (82.0-101.0); MEAN PLATELET VOLUME 10.5 fl (7.4-10.4); MONOCYTE # 0.4 10^3/ul (0.3-0.9); MONOCYTES % 6.1 % (0.0-11.0); NEUTROPHIL # 5.2 10^3/ul (1.6-7.5); NEUTROPHILS % 73.4 % (39.0-77.0); PLATELET COUNT 194 10^3/UL (140-415); RED BLOOD COUNT 2.51 10^6/ul (4.70-6.10); RED CELL DISTRIBUTION WIDTH 14.8 % (11.5-14.5); WHITE BLOOD COUNT 7.1 10^3/ul (4.8-10.8)
[2017-02-06 06:50] LABS: IRON 63 ug/dl (35-150)
[2017-02-06 07:03] LABS: TOTAL IRON BINDING CAPACITY 223 ug/dl (241-421)
[2017-02-06 07:04] LABS: CALCIUM 9.2 mg/dl (8.4-10.2); CREATININE 2.08 mg/dl (0.61-1.24)
[2017-02-06 07:56] LABS: MAGNESIUM 2.4 mg/dl (1.7-2.5); PHOSPHORUS 3.6 mg/dl (2.5-4.9)
[2017-02-06 08:13] LABS: CHOL/HDL RATIO 5.2 RATIO
[2017-02-06 08:23] LABS: THYROID STIMULATING HORMONE 2.64 MIU/L (0.465-4.680)
--- NOTE | 2017-02-06 08:54 | RADRPT ---
PROCEDURE: XR Chest. CLINICAL INDICATION: Pneumonia TECHNIQUE: A single AP view of the chest was obtained. COMPARISON: Chest x-ray dated 02/03/2017 FINDINGS: Lung volumes are low. There are left basilar interstitial opacities. No pleural effusion or pneumo thorax is seen. The cardiomediastinal silhouette is mildly enlarged. Calcifications are seen within the aortic arch. There are post cardiac surgery changes with sternotomy wires. The osseous struct ures demonstrate a fracture deformity of the right proximal humerus. Surgical clips are seen within the right upper quadrant. IMPRESSION: 1. Right basilar atelectasis versus pneumonia, mildly increased when compared to the prior examinat ion. 2. Low lung volumes. 3. Mild cardiomegaly and aortic atherosclerosis. 4. Fracture deformity of the right proximal humerus. RPTAT: HH .Mila Cruz MD, MD Date Time Electronically viewed and signed by .Mila Cruz MD, on 02/06/2017 08:54 .G/
[2017-02-06] MEDS: ASPIRIN 81 MG TAB PO SCH (08:55)
[2017-02-06] MEDS: CARBIDOPA/LEVODOPA (25/100) TAB PO SCH ×3 (08:55→20:51)
[2017-02-06] MEDS: FAMOTIDINE 20 MG TAB PO SCH (08:55)
[2017-02-06] MEDS: URSODIOL 300 MG CAP PO SCH (08:55)
[2017-02-06] MEDS: PRAMIPEXOLE 1 MG TAB PO SCH ×2 (08:55→20:51)
[2017-02-06] MEDS: CALCIUM CARBONATE 500 MG CHEW TAB PO SCH ×3 (08:56→20:50)
[2017-02-06] MEDS: VANCOMYCIN 1 GM in NS 250 ML IVPB SCH (09:03)
[2017-02-06] MEDS: AMANTADINE 100 MG CAP PO SCH ×2 (09:04→20:51)
--- NOTE | 2017-02-06 10:45 | RADRPT ---
PROCEDURE: Retroperitoneal US. CLINICAL INDICATION: Renal insufficiency TECHNIQUE: Multiple sonographic images of the kidneys and retroperitoneum were obtained. The imag es were reviewed on a PACS workstation. COMPARISON: No prior studies are available for comparison. FINDINGS: The kidneys are normal in size, contour, cortical thickness and cortical echogenicity. The right kidney measures 9.6 cm. The left kidney measures 10.8 cm. There is a 3 cm simple cyst in the lower pole of the left kidney. No kidney stones are visualized. There is no evidence for hydronephrosis. The urinary bladder is not seen. RPTAT: AA IMPRESSION: 3 cm simple cyst in the left kidney. Otherwise unremarkable. .Neftaly Benitez MD, MD Date Time Electronically viewed and signed by .Neftaly Benitez MD, MD on 02/06/2017 10:44 .S/
--- NOTE | 2017-02-06 10:50 | CONS ---
Date/Time of Note Date/Time of Note DATE: 02/06/17 TIME: 10:48 Consultation Date/Type/Reason Admit Date/Time Feb 03, 2017 at 21:10 Date of Consultation: Feb 05, 2017 Hx of Present Illness I have reviewed chart and will scheduled a family conference.. Constitutional: requiring O2 Eyes: no complaints ENT: no complaints Respiratory: shortness of breath Cardiovascular: no complaints Gastrointestinal: decreased appetite Genitourinary: bleeding Musculoskeletal: no complaints Skin: no complaints Neurologic: confusion Endocrine: no complaints Lymphatic: no complaints Psychological: nl mood/affect, no complaints Past Medical History Medical History: hypertension, renal disease Social History Alcohol Use: none Smoking Status: Never smoker Drug Use: none Exam/Review of Systems Vital Signs Vitals Vital Signs Date Time Temp Pulse Resp B/P Pulse Ox O2 Delivery O2 Flow Rate FiO2 02/06/17 09:10 88 02/06/17 07:12 98.4 18 136/88 96 02/05/17 20:40 Nasal Cannula 3.0 Intake and Output 02/05/17 02/05/17 02/06/17 15:00 23:00 07:00 Intake Total 200 ml Output Total 400 ml Balance -200 ml Results Result Diagram: 02/06/17 0510 02/06/17 0510 Results 24 hrs Laboratory Tests Test 02/05/17 17:00 02/06/17 05:10 Urine Random Creatinine 104.74 Urine Random Sodium 85 White Blood Count 7.1 # Red Blood Count 2.51 L Hemoglobin 8.3 L Hematocrit 25.9 L Mean Corpuscular Volume 103.2 H Mean Corpuscular Hemoglobin 33.1 H Mean Corpuscular Hemoglobin Concent 32.0 Red Cell Distribution Width 14.8 H Platelet Count 194 Mean Platelet Volume 10.5 H Neutrophils % 73.4 Lymphocytes % 14.8 L Monocytes % 6.1 Eosinophils % 5.2 Basophils % 0.1 Nucleated Red Blood Cells % 0.0 Neutrophils # 5.2 Lymphocytes # 1.0 Monocytes # 0.4 Eosinophils # 0.4 Basophils # 0.0 Nucleated Red Blood Cells # 0.0 Sodium Level 150 H Potassium Level 4.0 Chloride Level 116 H Carbon Dioxide Level 25 Anion Gap 13 Blood Urea Nitrogen 30 H Creatinine 2.08 #H Glucose Level 111 Hemoglobin A1c 6.0 H Calcium Level 9.2 Phosphorus Level 3.6 Magnesium Level 2.4 Iron Level 63 Total Iron Binding Capacity 223 L Percent Iron Saturation 28 Ferritin 659.0 H Triglycerides Level 124 Cholesterol Level 209 H LDL Cholesterol, Calculated 144 HDL Cholesterol 40 Cholesterol/HDL Ratio 5.2 Prostate Specific Antigen < 0.1 Thyroid Stimulating Hormone (TSH) 2.640 Free Thyroxine 1.35 Random Vancomycin Level 6.5 Medications Medications Current Medications Sodium Chloride (NS) 1,000 ml @ 100 mls/hr Q10H IV Last administered on 05:25; Admin Dose 100 MLS/HR; Start 02/03/17 at 23:42 Ondansetron HCl (Zofran Inj) 4 mg Q6H PRN IV NAUSEA AND/OR VOMITING; Start at 00:00 Pantoprazole 40 mg 40 mg DAILY@06 IV Last administered on 02/06/17 05:27; Admin Dose 40 MG; Start 02/04/17 at 06:00 Levofloxacin/ Dextrose (Levaquin 500mg/ D5W 100 ml (Pmx)) 100 ml @ 100 mls/hr Q48H IVPB Last administered on 02/05/17 21:37; Admin Dose 100 MLS/HR; Start at 22:30 Aspirin (Aspirin) 81 mg DAILY PO Last administered on 02/06/17 08:55; Admin Dose 81 MG; Start 02/04/17 at 13:30 Hydralazine HCl (Apresoline) 10 mg Q6H PRN IV SBP>160; Start 02/05/17 at 18:00 Amantadine HCl (Symmetrel) 100 mg BID PO Last administered on 02/06/17 09:04; Admin Dose 100 MG; Start 02/05/17 at 21:00 Carbidopa/Levodopa (Sinemet (25/ 100)) 1 tab TID PO Last administered on 08:55; Admin Dose 1 TAB; Start 02/05/17 at 21:00 Doxazosin Mesylate (Cardura) 2 mg QHS PO Last administered on 02/05/17 21:33; Admin Dose 2 MG; Start 02/05/17 at 21:00 Pramipexole (Mirapex) 1 mg BID PO Last administered on 02/06/17 08:55; Admin Dose 1 MG; Start 02/05/17 at 21:00 Quetiapine Fumarate (Seroquel) 125 mg HS PO Last administered on 02/05/17 21: 33; Admin Dose 125 MG; Start 02/05/17 at 21:00 Ursodiol (Actigall) 300 mg DAILY PO Last administered on 02/06/17 08:55; Admin Dose 300 MG; Start 02/06/17 at 09:00 Famotidine 20 mg 20 mg DAILY PO Last administered on 02/06/17 08:55; Admin Dose 20 MG; Start 02/06/17 at 09:00 Vancomycin HCl (Vancocin) 250 ml @ 125 mls/hr Q36H IVPB Last administered on 09:03; Admin Dose 125 MLS/HR; Start 02/06/17 at 09:00 ELAN RUIZ Feb 06, 2017 10:50
--- NOTE | 2017-02-06 17:13 | CONS ---
Date/Time of Note Date/Time of Note DATE: 02/06/17 TIME: 17:10 Assessment/Plan Assessment/Plan Additional Assessment/Plan 81 yo Male with 1) AMS 2) PNA 3) CARLOS on CKD 4) HTN 5) Parkinson Dz 6) Renal Cyst/Lesion, ?RCC Pt with Carlos on CKD likely stage III CKD- which is stable and improving. in the setting of decreased PO intake and Sepsis R/o ATN Cont IVFS, will monitor UO, Electrolytes and renal function closely with current Rx and plan Increase Free H20 Intake. CT from [facility] reviewed, 3 lesions present, ? Carcinoma, Recommend Urology consultation, Consider MRI if family would like to proceed. Pt is DNR Discussed case with Hospitalist Thank you for the opportunity to participate in the care of MR Rea. Consultation Date/Type/Reason Admit Date/Time Feb 03, 2017 at 21:10 Initial Consult Date 02/05/17 Type of Consultation: Renal Reason for Consultation CARLOS on CKD Referring Provider: FANNIE RUFF 24 HR Interval Summary Free Text/Dictation Family at bedside, brought in CT scan results from [facility]. Requested MRI. No new complaints, DNR Constitutional: requiring O2 Exam/Review of Systems Vital Signs Vitals Vital Signs Date Time Temp Pulse Resp B/P Pulse Ox O2 Delivery O2 Flow Rate FiO2 02/06/17 15:22 98.0 75 18 146/65 98 02/06/17 08:45 Nasal Cannula 3.0 Intake and Output 02/05/17 02/05/17 02/06/17 15:00 23:00 07:00 Intake Total 200 ml Output Total 400 ml Balance -200 ml Exam Constitutional: alert, No distress ENMT: mucosa pink and moist Neck: No jvd Respiratory: crackles/rales, No diminished breath sounds, No labored breathing Cardiovascular: edema, regular rate and rhythm Gastrointestinal: non-tender, soft, No rebound or guarding Neurological: No lethargic Skin: No diaphoresis Results Result Diagram: 02/06/17 0510 02/06/17 0510 Results 24 hrs Laboratory Tests Test 02/06/17 05:10 White Blood Count 7.1 # Red Blood Count 2.51 L Hemoglobin 8.3 L Hematocrit 25.9 L Mean Corpuscular Volume 103.2 H Mean Corpuscular Hemoglobin 33.1 H Mean Corpuscular Hemoglobin Concent 32.0 Red Cell Distribution Width 14.8 H Platelet Count 194 Mean Platelet Volume 10.5 H Neutrophils % 73.4 Lymphocytes % 14.8 L Monocytes % 6.1 Eosinophils % 5.2 Basophils % 0.1 Nucleated Red Blood Cells % 0.0 Neutrophils # 5.2 Lymphocytes # 1.0 Monocytes # 0.4 Eosinophils # 0.4 Basophils # 0.0 Nucleated Red Blood Cells # 0.0 Sodium Level 150 H Potassium Level 4.0 Chloride Level 116 H Carbon Dioxide Level 25 Anion Gap 13 Blood Urea Nitrogen 30 H Creatinine 2.08 #H Glucose Level 111 Hemoglobin A1c 6.0 H Calcium Level 9.2 Phosphorus Level 3.6 Magnesium Level 2.4 Iron Level 63 Total Iron Binding Capacity 223 L Percent Iron Saturation 28 Ferritin 659.0 H Triglycerides Level 124 Cholesterol Level 209 H LDL Cholesterol, Calculated 144 HDL Cholesterol 40 Cholesterol/HDL Ratio 5.2 Prostate Specific Antigen < 0.1 Thyroid Stimulating Hormone (TSH) 2.640 Free Thyroxine 1.35 Random Vancomycin Level 6.5 Medications Medications Current Medications Sodium Chloride (NS) 1,000 ml @ 100 mls/hr Q10H IV Last administered on 05:25; Admin Dose 100 MLS/HR; Start 02/03/17 at 23:42 Ondansetron HCl (Zofran Inj) 4 mg Q6H PRN IV NAUSEA AND/OR VOMITING; Start at 00:00 Pantoprazole 40 mg 40 mg DAILY@06 IV Last administered on 02/06/17 05:27; Admin Dose 40 MG; Start 02/04/17 at 06:00 Levofloxacin/ Dextrose (Levaquin 500mg/ D5W 100 ml (Pmx)) 100 ml @ 100 mls/hr Q48H IVPB Last administered on 02/05/17 21:37; Admin Dose 100 MLS/HR; Start at 22:30 Aspirin (Aspirin) 81 mg DAILY PO Last administered on 02/06/17 08:55; Admin Dose 81 MG; Start 02/04/17 at 13:30 Hydralazine HCl (Apresoline) 10 mg Q6H PRN IV SBP>160; Start 02/05/17 at 18:00 Amantadine HCl (Symmetrel) 100 mg BID PO Last administered on 02/06/17 09:04; Admin Dose 100 MG; Start 02/05/17 at 21:00 Carbidopa/Levodopa (Sinemet (25/ 100)) 1 tab TID PO Last administered on 12:29; Admin Dose 1 TAB; Start 02/05/17 at 21:00 Doxazosin Mesylate (Cardura) 2 mg QHS PO Last administered on 02/05/17 21:33; Admin Dose 2 MG; Start 02/05/17 at 21:00 Pramipexole (Mirapex) 1 mg BID PO Last administered on 02/06/17 08:55; Admin Dose 1 MG; Start 02/05/17 at 21:00 Quetiapine Fumarate (Seroquel) 125 mg HS PO Last administered on 02/05/17 21: 33; Admin Dose 125 MG; Start 02/05/17 at 21:00 Ursodiol (Actigall) 300 mg DAILY PO Last administered on 02/06/17 08:55; Admin Dose 300 MG; Start 02/06/17 at 09:00 Famotidine 20 mg 20 mg DAILY PO Last administered on 02/06/17 08:55; Admin Dose 20 MG; Start 02/06/17 at 09:00 Vancomycin HCl (Vancocin) 250 ml @ 125 mls/hr Q36H IVPB Last administered on 09:03; Admin Dose 125 MLS/HR; Start 02/06/17 at 09:00 Procedures Procedures PROCEDURE: Retroperitoneal US. CLINICAL INDICATION: Renal insufficiency TECHNIQUE: Multiple sonographic images of the kidneys and retroperitoneum were obtained. The images were reviewed on a PACS workstation. COMPARISON: No prior studies are available for comparison. FINDINGS: The kidneys are normal in size, contour, cortical thickness and cortical echogenicity. The right kidney measures 9.6 cm. The left kidney measures 10.8 cm. There is a 3 cm simple cyst in the lower pole of the left kidney. No kidney stones are visualized. There is no evidence for hydronephrosis. The urinary bladder is not seen. RPTAT: AA IMPRESSION: 3 cm simple cyst in the left kidney. Otherwise unremarkable. .Neftaly Benitez MD, MD Date Time Electronically viewed and signed by .Neftaly Benitez MD, MD on 02/06/2017 10: 44 ALYSSA STAUFFER MD Feb 06, 2017 17:13
--- NOTE | 2017-02-06 17:37 | PN ---
Date/Time of Note Date/Time of Note DATE: 02/06/17 TIME: 17:37 Assessment/Plan VTE Prophylaxis VTE Prophylaxis Intervention: SCD's Lines/Catheters IV [facility] Type (from [facility]): Peripheral IV Urinary Cath still in place: Yes Reason Cath still needed: other (indicate) Assessment/Plan Chief Complaint/Hosp Course 1. Non-ST elevation myocardial infarction. Most probably type 2 event in the setting of underlying worsening renal function and underlying sepsis. Status post evaluation by cardiology. 2-D echocardiogram showing preserved left ventricular ejection fraction. 2. Acute on chronic kidney injury. Continue IV fluids. Monitor intake and output closely. Avoid nephrotoxic medications. Being followed by nephrology. 3. Sepsis with underlying urinary tract infection and healthcare-associated pneumonia. No evidence of any septic shock. Continue antibiotics. 4. Acute encephalopathy. Most probably metabolic in origin. Brain CT scan negative for any acute intracranial findings. The patient is back to baseline with antibiotic management. 5. Parkinson's disease. Continue anti-parkinsonian medications. 6. Essential hypertension. Continue antihypertensives. 7. Normocytic normochromic anemia. Etiology unclear. Will monitor hemoglobin and hematocrit closely. We will transfuse as needed. 8. Fluid, electrolytes and nutrition. Mechanical soft diet with thin liquids, no straw. 9. Deep venous thrombosis prophylaxis. Bilateral sequential compression devices. 10. Gastrointestinal prophylaxis. Proton pump inhibitors. PLAN: Continue antibiotics. Monitor renal function. Monitor on telemetry floor. Case discussed with Dr. Oropeza. The plan of care was explained to the patient's family. Problems: Subjective 24 Hr Interval Summary Free Text/Dictation The patient was agitated last night. The patient had to be given IV lorazepam because of agitation. Currently the patient is awake and alert. Exam/Review of Systems Vital Signs Vitals Vital Signs Date Time Temp Pulse Resp B/P Pulse Ox O2 Delivery O2 Flow Rate FiO2 02/06/17 17:09 93 02/06/17 15:22 98.0 18 146/65 98 02/06/17 08:45 Nasal Cannula 3.0 Intake and Output 02/05/17 02/05/17 02/06/17 15:00 23:00 07:00 Intake Total 200 ml Output Total 400 ml Balance -200 ml Exam GENERAL: This is an 81-year-old male patient lying in bed in no apparent distress. HEENT: Head normocephalic and atraumatic. Eyes: Anicteric sclerae. Conjunctivae clear. ENT: Nasal septum is midline. Oral mucosa is dry. Poor dentition. NECK: Supple. No JVD noticed. RESPIRATORY: Bilaterally diminished breath sounds. No adventitious breath sounds heard. No use of accessory muscles for respiration. CARDIAC: S1, S2 heard. No murmurs. ABDOMEN: Soft, nontender and nondistended. Bowel sounds positive in all 4 quadrants. GENITOURINARY: Deferred. EXTREMITIES: No cyanosis, no clubbing, no edema. Peripheral pulses are palpable. NEUROLOGIC: The patient is awake and alert. The patient has underlying Parkinson's disease. Results Result Diagram: 02/06/17 0510 02/06/17 0510 Results 24 hrs Laboratory Tests Test 02/06/17 05:10 White Blood Count 7.1 # Red Blood Count 2.51 L Hemoglobin 8.3 L Hematocrit 25.9 L Mean Corpuscular Volume 103.2 H Mean Corpuscular Hemoglobin 33.1 H Mean Corpuscular Hemoglobin Concent 32.0 Red Cell Distribution Width 14.8 H Platelet Count 194 Mean Platelet Volume 10.5 H Neutrophils % 73.4 Lymphocytes % 14.8 L Monocytes % 6.1 Eosinophils % 5.2 Basophils % 0.1 Nucleated Red Blood Cells % 0.0 Neutrophils # 5.2 Lymphocytes # 1.0 Monocytes # 0.4 Eosinophils # 0.4 Basophils # 0.0 Nucleated Red Blood Cells # 0.0 Sodium Level 150 H Potassium Level 4.0 Chloride Level 116 H Carbon Dioxide Level 25 Anion Gap 13 Blood Urea Nitrogen 30 H Creatinine 2.08 #H Glucose Level 111 Hemoglobin A1c 6.0 H Calcium Level 9.2 Phosphorus Level 3.6 Magnesium Level 2.4 Iron Level 63 Total Iron Binding Capacity 223 L Percent Iron Saturation 28 Ferritin 659.0 H Triglycerides Level 124 Cholesterol Level 209 H LDL Cholesterol, Calculated 144 HDL Cholesterol 40 Cholesterol/HDL Ratio 5.2 Prostate Specific Antigen < 0.1 Thyroid Stimulating Hormone (TSH) 2.640 Free Thyroxine 1.35 Random Vancomycin Level 6.5 Medications Medications Current Medications Sodium Chloride (NS) 1,000 ml @ 100 mls/hr Q10H IV Last administered on t 05:25; Admin Dose 100 MLS/HR; Start 02/03/17 at 23:42 Ondansetron HCl (Zofran Inj) 4 mg Q6H PRN IV NAUSEA AND/OR VOMITING; Start at 00:00 Pantoprazole 40 mg 40 mg DAILY@06 IV Last administered on 02/06/17 05:27; Admin Dose 40 MG; Start 02/04/17 at 06:00 Levofloxacin/ Dextrose (Levaquin 500mg/ D5W 100 ml (Pmx)) 100 ml @ 100 mls/hr Q48H IVPB Last administered on 02/05/17 21:37; Admin Dose 100 MLS/HR; Start at 22:30 Aspirin (Aspirin) 81 mg DAILY PO Last administered on 02/06/17 08:55; Admin Dose 81 MG; Start 02/04/17 at 13:30 Hydralazine HCl (Apresoline) 10 mg Q6H PRN IV SBP>160; Start 02/05/17 at 18:00 Amantadine HCl (Symmetrel) 100 mg BID PO Last administered on 02/06/17 09:04; Admin Dose 100 MG; Start 02/05/17 at 21:00 Carbidopa/Levodopa (Sinemet (25/ 100)) 1 tab TID PO Last administered on 12:29; Admin Dose 1 TAB; Start 02/05/17 at 21:00 Doxazosin Mesylate (Cardura) 2 mg QHS PO Last administered on 02/05/17 21:33; Admin Dose 2 MG; Start 02/05/17 at 21:00 Pramipexole (Mirapex) 1 mg BID PO Last administered on 02/06/17 08:55; Admin Dose 1 MG; Start 02/05/17 at 21:00 Quetiapine Fumarate (Seroquel) 125 mg HS PO Last administered on 02/05/17 21: 33; Admin Dose 125 MG; Start 02/05/17 at 21:00 Ursodiol (Actigall) 300 mg DAILY PO Last administered on 02/06/17 08:55; Admin Dose 300 MG; Start 02/06/17 at 09:00 Famotidine 20 mg 20 mg DAILY PO Last administered on 02/06/17 08:55; Admin Dose 20 MG; Start 02/06/17 at 09:00 Vancomycin HCl (Vancocin) 250 ml @ 125 mls/hr Q36H IVPB Last administered on t 09:03; Admin Dose 125 MLS/HR; Start 02/06/17 at 09:00 DINORA WHATLEY NP Feb 06, 2017 17:37
[2017-02-06] MEDS: QUETIAPINE 25 MG TAB PO SCH (20:51)
[2017-02-06] MEDS: DOXAZOSIN 2 MG TAB PO SCH (20:51)
[2017-02-07] VITALS (12 sets, daily range): BP systolic 130–160; BP diastolic 60–105; PULSE 75–87; RESP 16–17
[2017-02-07] MEDS: SOD CHLORIDE 0.9% 1,000 ML IV SCH ×2 (00:52→05:48)
[2017-02-07] MEDS: PANTOPRAZOLE (EC) 40 MG TAB PO SCH (05:44)
[2017-02-07 07:09] LABS: ADD SCAN DIFF NO
[2017-02-07 07:14] LABS: BASOPHILS % 0.2 % (0.0-2.0); EOSINOPHILS # 0.4 10^3/ul (0.0-0.5); EOSINOPHILS % 7.1 % (0.0-7.0); HEMATOCRIT 26.7 % (42.0-52.0); HEMOGLOBIN 8.3 g/dl (14.0-18.0); LYMPHOCYTES # 0.9 10^3/ul (0.8-2.9); LYMPHOCYTES % 15.6 % (15.0-51.0); MEAN CORPUSCULAR HEMOGLOBIN 32.9 pg (29.0-33.0); MEAN CORPUSCULAR HGB CONC 31.1 g/dl (32.0-37.0); MEAN PLATELET VOLUME 10.6 fl (7.4-10.4); MONOCYTE # 0.3 10^3/ul (0.3-0.9); MONOCYTES % 5.3 % (0.0-11.0); NEUTROPHIL # 4.3 10^3/ul (1.6-7.5); NEUTROPHILS % 71.5 % (39.0-77.0); PLATELET COUNT 161 10^3/UL (140-415); RED BLOOD COUNT 2.52 10^6/ul (4.70-6.10); RED CELL DISTRIBUTION WIDTH 15.2 % (11.5-14.5)
[2017-02-07 07:37] LABS: MAGNESIUM 2.3 mg/dl (1.7-2.5); PHOSPHORUS 3.5 mg/dl (2.5-4.9)
[2017-02-07 07:39] LABS: CALCIUM 9.7 mg/dl (8.4-10.2); CREATININE 1.88 mg/dl (0.61-1.24); POTASSIUM 3.9 mmol/L (3.5-5.1)
[2017-02-07] MEDS: CARBIDOPA/LEVODOPA (25/100) TAB PO SCH ×3 (09:07→20:53)
[2017-02-07] MEDS: ASPIRIN 81 MG TAB PO SCH (09:07)
[2017-02-07] MEDS: FAMOTIDINE 20 MG TAB PO SCH (09:07)
[2017-02-07] MEDS: URSODIOL 300 MG CAP PO SCH (09:07)
[2017-02-07] MEDS: PRAMIPEXOLE 1 MG TAB PO SCH ×2 (09:07→20:53)
[2017-02-07] MEDS: CALCIUM CARBONATE 500 MG CHEW TAB PO SCH ×3 (09:07→20:53)
[2017-02-07] MEDS: AMANTADINE 100 MG CAP PO SCH ×2 (09:07→20:53)
[2017-02-07] MEDS: DEXTROSE 5% 1,000 ML IV SCH ×2 (10:15→20:54)
[2017-02-07] MEDS ORDERED: LORAZEPAM 2 MG INJ IV ONE (11:30)
--- NOTE | 2017-02-07 12:15 | PN ---
Date/Time of Note Date/Time of Note DATE: 02/07/17 TIME: 12:13 Assessment/Plan VTE Prophylaxis VTE Prophylaxis Intervention: SCD's Lines/Catheters IV C[facility]ter Type (from [facility]): Peripheral IV Urinary Cath still in place: Yes Reason Cath still needed: other (indicate) Assessment/Plan Chief Complaint/Hosp Course 1. Non-ST elevation myocardial infarction. Most probably type 2 event in the setting of underlying worsening renal function and underlying sepsis. Status post evaluation by cardiology. 2-D echocardiogram showing preserved left ventricular ejection fraction. 2. Acute on chronic kidney injury. Continue IV fluids. Monitor intake and output closely. Avoid nephrotoxic medications. Being followed by nephrology. 3. Sepsis with underlying urinary tract infection and healthcare-associated pneumonia. No evidence of any septic shock. Continue antibiotics. 4. Acute encephalopathy. Most probably metabolic in origin. Brain CT scan negative for any acute intracranial findings. The patient is back to baseline with antibiotic management. 5. Parkinson's disease. Continue anti-parkinsonian medications. 6. Essential hypertension. Continue antihypertensives. 7. Normocytic normochromic anemia. Etiology unclear. Will monitor hemoglobin and hematocrit closely. We will transfuse as needed. 8. Hypernatremia. The patient's IV fluids have been changed to D5W as per nephrology. 9. Fluid, electrolytes and nutrition. Mechanical soft diet with thin liquids, no straw. 10. Deep venous thrombosis prophylaxis. Bilateral sequential compression devices. 11. Gastrointestinal prophylaxis. Proton pump inhibitors. PLAN: Continue antibiotics. Monitor renal function. Monitor on telemetry floor. Case discussed with Dr. Oropeza. The plan of care was explained to the patient's family. Problems: Subjective 24 Hr Interval Summary Free Text/Dictation The patient has been agitated today. The patient was given IV lorazepam. Exam/Review of Systems Vital Signs Vitals Vital Signs Date Time Temp Pulse Resp B/P Pulse Ox O2 Delivery O2 Flow Rate FiO2 02/07/17 11:40 99.6 83 16 146/62 97 02/07/17 02:00 Nasal Cannula 02/06/17 23:37 3.0 Intake and Output 02/06/17 02/06/17 02/07/17 15:00 23:00 07:00 Intake Total 550 ml 300 ml Output Total 450 ml Balance 550 ml -150 ml Exam GENERAL: This is an 81-year-old male patient lying in bed in no apparent distress. HEENT: Head normocephalic and atraumatic. Eyes: Anicteric sclerae. Conjunctivae clear. ENT: Nasal septum is midline. Oral mucosa is dry. Poor dentition. NECK: Supple. No JVD noticed. RESPIRATORY: Bilaterally diminished breath sounds. No adventitious breath sounds heard. No use of accessory muscles for respiration. CARDIAC: S1, S2 heard. No murmurs. ABDOMEN: Soft, nontender and nondistended. Bowel sounds positive in all 4 quadrants. GENITOURINARY: Deferred. EXTREMITIES: No cyanosis, no clubbing, no edema. Peripheral pulses are palpable. NEUROLOGIC: The patient is awake and alert. The patient has underlying Parkinson's disease. Results Result Diagram: 02/07/17 0630 02/07/17 0630 Results 24 hrs Laboratory Tests Test 02/07/17 06:30 White Blood Count 6.0 Red Blood Count 2.52 L Hemoglobin 8.3 L Hematocrit 26.7 L Mean Corpuscular Volume 106.0 H Mean Corpuscular Hemoglobin 32.9 Mean Corpuscular Hemoglobin Concent 31.1 L Red Cell Distribution Width 15.2 H Platelet Count 161 Mean Platelet Volume 10.6 H Neutrophils % 71.5 Lymphocytes % 15.6 Monocytes % 5.3 Eosinophils % 7.1 H Basophils % 0.2 Nucleated Red Blood Cells % 0.0 Neutrophils # 4.3 Lymphocytes # 0.9 Monocytes # 0.3 Eosinophils # 0.4 Basophils # 0.0 Nucleated Red Blood Cells # 0.0 Sodium Level 152 H Potassium Level 3.9 Chloride Level 118 H Carbon Dioxide Level 24 Anion Gap 14 Blood Urea Nitrogen 19 # Creatinine 1.88 H Glucose Level 89 Calcium Level 9.7 Phosphorus Level 3.5 Magnesium Level 2.3 Medications Medications Current Medications Ondansetron HCl 4 mg 4 mg Q6H PRN IV NAUSEA AND/OR VOMITING; Start 02/04/17 at 00:00 Levofloxacin/ Dextrose (Levaquin 500mg/ D5W 100 ml (Pmx)) 100 ml @ 100 mls/hr Q48H IVPB Last administered on 02/05/17 21:37; Admin Dose 100 MLS/HR; Start at 22:30 Aspirin (Aspirin) 81 mg DAILY PO Last administered on 02/07/17 09:07; Admin Dose 81 MG; Start 02/04/17 at 13:30 Hydralazine HCl (Apresoline) 10 mg Q6H PRN IV SBP>160; Start 02/05/17 at 18:00 Amantadine HCl (Symmetrel) 100 mg BID PO Last administered on 02/07/17 09:07; Admin Dose 100 MG; Start 02/05/17 at 21:00 Carbidopa/Levodopa (Sinemet (25/ 100)) 1 tab TID PO Last administered on 09:07; Admin Dose 1 TAB; Start 02/05/17 at 21:00 Doxazosin Mesylate (Cardura) 2 mg QHS PO Last administered on 02/06/17 20:51; Admin Dose 2 MG; Start 02/05/17 at 21:00 Pramipexole (Mirapex) 1 mg BID PO Last administered on 02/07/17 09:07; Admin Dose 1 MG; Start 02/05/17 at 21:00 Quetiapine Fumarate (Seroquel) 125 mg HS PO Last administered on 02/06/17 20: 51; Admin Dose 125 MG; Start 02/05/17 at 21:00 Ursodiol (Actigall) 300 mg DAILY PO Last administered on 02/07/17 09:07; Admin Dose 300 MG; Start 02/06/17 at 09:00 Famotidine 20 mg 20 mg DAILY PO Last administered on 02/07/17 09:07; Admin Dose 20 MG; Start 02/06/17 at 09:00 Vancomycin HCl (Vancocin) 250 ml @ 125 mls/hr Q36H IVPB Last administered on 09:03; Admin Dose 125 MLS/HR; Start 02/06/17 at 09:00 Pantoprazole 40 mg 40 mg DAILY@06 PO Last administered on 02/07/17 05:44; Admin Dose 40 MG; Start 02/07/17 at 06:00 Dextrose (D5W) 1,000 ml @ 100 mls/hr Q10H IV Last administered on 02/07/17 10 :15; Admin Dose 100 MLS/HR; Start 02/07/17 at 08:30; Stop 02/08/17 at 09:00 DINORA WHATLEY NP Feb 07, 2017 12:15
--- NOTE | 2017-02-07 14:08 | CONS ---
Date/Time of Note Date/Time of Note DATE: 02/07/17 TIME: 14:00 Assessment/Plan Assessment/Plan Chief Complaint/Hosp Course Spoke to sister at bedside Problems: Additional Assessment/Plan May consider epo for anemia Continue AB Rx for pna Cont'd Hospitalization Reason: Will change IV to D5W to reduce SNa & monitor i/ o, electrolytes closely. Consultation Date/Type/Reason Admit Date/Time Feb 03, 2017 at 21:10 Initial Consult Date 02/04/17 Type of Consultation: Renal Referring Provider: FANNIE RUFF 24 HR Interval Summary Free Text/Dictation More alert & responsive. Sister at bedside, feeding pt Exam/Review of Systems Vital Signs Vitals Vital Signs Date Time Temp Pulse Resp B/P Pulse Ox O2 Delivery O2 Flow Rate FiO2 02/07/17 12:36 84 02/07/17 11:40 99.6 16 146/62 97 02/07/17 02:00 Nasal Cannula 02/06/17 23:37 3.0 Intake and Output 02/06/17 02/06/17 02/07/17 15:00 23:00 07:00 Intake Total 550 ml 300 ml Output Total 450 ml Balance 550 ml -150 ml Exam Pt offers no new complaints Constitutional: alert, oriented, other (Sister says: pt has not been ambulating much), well developed Psych: nl mood/affect, no complaints Head: atraumatic, normocephalic Eyes: EOMI, PERRL, nl conjunctiva, nl lids, nl sclera ENMT: nl external ears & nose, nl lips & teeth, nl nasal mucosa & septum Neck: non-tender, supple Respiratory: clear to auscultation, normal air movement Cardiovascular: nl pulses, regular rate and rhythm Gastrointestinal: nl liver, spleen, non-tender, soft Musculoskeletal: nl extremities to inspection, nl gait and stance Extremities: normal pulses, other (weakness) Neurological: OCCUPATIONAL THERAPIST ASSISTANT II-XII intact, nl mental status, nl speech, nl strength Skin: nl turgor, other (pale), No rash or lesions Lymph: nl lymph nodes Results Iron Sat is normal Note SNa is trending high renal fn has improved suggesting significant pre-renal picture 24 hr urine result is pending Result Diagram: 02/07/17 0630 02/07/17 0630 Results 24 hrs Laboratory Tests Test 02/07/17 06:30 White Blood Count 6.0 Red Blood Count 2.52 L Hemoglobin 8.3 L Hematocrit 26.7 L Mean Corpuscular Volume 106.0 H Mean Corpuscular Hemoglobin 32.9 Mean Corpuscular Hemoglobin Concent 31.1 L Red Cell Distribution Width 15.2 H Platelet Count 161 Mean Platelet Volume 10.6 H Neutrophils % 71.5 Lymphocytes % 15.6 Monocytes % 5.3 Eosinophils % 7.1 H Basophils % 0.2 Nucleated Red Blood Cells % 0.0 Neutrophils # 4.3 Lymphocytes # 0.9 Monocytes # 0.3 Eosinophils # 0.4 Basophils # 0.0 Nucleated Red Blood Cells # 0.0 Sodium Level 152 H Potassium Level 3.9 Chloride Level 118 H Carbon Dioxide Level 24 Anion Gap 14 Blood Urea Nitrogen 19 # Creatinine 1.88 H Glucose Level 89 Calcium Level 9.7 Phosphorus Level 3.5 Magnesium Level 2.3 Medications Medications Current Medications Ondansetron HCl 4 mg 4 mg Q6H PRN IV NAUSEA AND/OR VOMITING Last administered on 02/07/17 12:32; Admin Dose 4 MG; Start 02/04/17 at 00:00 Levofloxacin/ Dextrose (Levaquin 500mg/ D5W 100 ml (Pmx)) 100 ml @ 100 mls/hr Q48H IVPB Last administered on 02/05/17 21:37; Admin Dose 100 MLS/HR; Start at 22:30 Aspirin (Aspirin) 81 mg DAILY PO Last administered on 02/07/17 09:07; Admin Dose 81 MG; Start 02/04/17 at 13:30 Hydralazine HCl (Apresoline) 10 mg Q6H PRN IV SBP>160; Start 02/05/17 at 18:00 Amantadine HCl (Symmetrel) 100 mg BID PO Last administered on 02/07/17 09:07; Admin Dose 100 MG; Start 02/05/17 at 21:00 Carbidopa/Levodopa (Sinemet (25/ 100)) 1 tab TID PO Last administered on 09:07; Admin Dose 1 TAB; Start 02/05/17 at 21:00 Doxazosin Mesylate (Cardura) 2 mg QHS PO Last administered on 02/06/17 20:51; Admin Dose 2 MG; Start 02/05/17 at 21:00 Pramipexole (Mirapex) 1 mg BID PO Last administered on 02/07/17 09:07; Admin Dose 1 MG; Start 02/05/17 at 21:00 Quetiapine Fumarate (Seroquel) 125 mg HS PO Last administered on 02/06/17 20: 51; Admin Dose 125 MG; Start 02/05/17 at 21:00 Ursodiol (Actigall) 300 mg DAILY PO Last administered on 02/07/17 09:07; Admin Dose 300 MG; Start 02/06/17 at 09:00 Famotidine 20 mg 20 mg DAILY PO Last administered on 02/07/17 09:07; Admin Dose 20 MG; Start 02/06/17 at 09:00 Vancomycin HCl (Vancocin) 250 ml @ 125 mls/hr Q36H IVPB Last administered on 09:03; Admin Dose 125 MLS/HR; Start 02/06/17 at 09:00 Pantoprazole 40 mg 40 mg DAILY@06 PO Last administered on 02/07/17 05:44; Admin Dose 40 MG; Start 02/07/17 at 06:00 Dextrose (D5W) 1,000 ml @ 100 mls/hr Q10H IV Last administered on 02/07/17 10 :15; Admin Dose 100 MLS/HR; Start 02/07/17 at 08:30; Stop 02/08/17 at 09:00 Procedures Procedures CXR ?worse JASPER JAUREGUI MD Feb 07, 2017 14:08
[2017-02-07] MEDS: QUETIAPINE 25 MG TAB PO SCH (20:53)
[2017-02-07] MEDS: VANCOMYCIN 1 GM in NS 250 ML IVPB SCH (20:54)
[2017-02-07] MEDS: DOXAZOSIN 2 MG TAB PO SCH (20:54)
[2017-02-07] MEDS: LEVOFLOXACIN 500MG/D5W (PMX) 100 ML IVPB SCH (22:19)
[2017-02-08] VITALS (15 sets, daily range): BP systolic 123–171; BP diastolic 54–95; PULSE 66–91; RESP 16–20
[2017-02-08] MEDS: PANTOPRAZOLE (EC) 40 MG TAB PO SCH (05:08)
[2017-02-08] MEDS: DEXTROSE 5% 1,000 ML IV SCH (05:08)
[2017-02-08 07:35] LABS: ADD SCAN DIFF NO
[2017-02-08 07:46] LABS: BASOPHILS % 0.2 % (0.0-2.0); EOSINOPHILS # 0.4 10^3/ul (0.0-0.5); EOSINOPHILS % 7.1 % (0.0-7.0); HEMATOCRIT 24.7 % (42.0-52.0); HEMOGLOBIN 7.7 g/dl (14.0-18.0); LYMPHOCYTES % 16.4 % (15.0-51.0); MEAN CORPUSCULAR HEMOGLOBIN 32.5 pg (29.0-33.0); MEAN CORPUSCULAR HGB CONC 31.2 g/dl (32.0-37.0); MEAN CORPUSCULAR VOLUME 104.2 fl (82.0-101.0); MEAN PLATELET VOLUME 10.6 fl (7.4-10.4); MONOCYTE # 0.3 10^3/ul (0.3-0.9); MONOCYTES % 5.7 % (0.0-11.0); NEUTROPHIL # 4.1 10^3/ul (1.6-7.5); NEUTROPHILS % 70.1 % (39.0-77.0); PLATELET COUNT 141 10^3/UL (140-415); RED BLOOD COUNT 2.37 10^6/ul (4.70-6.10); RED CELL DISTRIBUTION WIDTH 14.9 % (11.5-14.5); WHITE BLOOD COUNT 5.8 10^3/ul (4.8-10.8)
[2017-02-08 07:56] LABS: MAGNESIUM 2.1 mg/dl (1.7-2.5); PHOSPHORUS 2.9 mg/dl (2.5-4.9)
[2017-02-08 08:01] LABS: CALCIUM 9.2 mg/dl (8.4-10.2); CREATININE 1.53 mg/dl (0.61-1.24); POTASSIUM 3.7 mmol/L (3.5-5.1)
[2017-02-08] MEDS: PRAMIPEXOLE 1 MG TAB PO SCH ×2 (09:24→20:54)
[2017-02-08] MEDS: ASPIRIN 81 MG TAB PO SCH (09:24)
[2017-02-08] MEDS: CARBIDOPA/LEVODOPA (25/100) TAB PO SCH ×3 (09:24→20:54)
[2017-02-08] MEDS: CALCIUM CARBONATE 500 MG CHEW TAB PO SCH ×3 (09:24→18:55)
[2017-02-08] MEDS: URSODIOL 300 MG CAP PO SCH (09:24)
[2017-02-08] MEDS: AMANTADINE 100 MG CAP PO SCH ×2 (09:24→20:54)
[2017-02-08] MEDS: FAMOTIDINE 20 MG TAB PO SCH (09:24)
--- NOTE | 2017-02-08 12:17 | PN ---
Date/Time of Note Date/Time of Note DATE: 02/08/17 TIME: 12:15 Assessment/Plan VTE Prophylaxis VTE Prophylaxis Intervention: other Assessment/Plan Chief Complaint/Hosp Course 1) AMS 2) PNA 3) CARLOS on CKD 4) HTN 5) Parkinson Dz 6) Renal Cyst/Lesion, ?RCC [id number] creat stable non oliguric Problems: Exam/Review of Systems Vital Signs Vitals Vital Signs Date Time Temp Pulse Resp B/P Pulse Ox O2 Delivery O2 Flow Rate FiO2 02/08/17 08:30 78 02/08/17 07:33 97.5 16 139/64 100 02/08/17 02:00 Nasal Cannula 02/07/17 19:52 3.0 Intake and Output 02/07/17 02/07/17 02/08/17 15:00 23:00 07:00 Intake Total 1100 ml Output Total 450 ml Balance 650 ml Exam Constitutional: alert, well developed Head: normocephalic Eyes: nl conjunctiva Neck: supple Respiratory: clear to auscultation Cardiovascular: regular rate and rhythm Gastrointestinal: soft Musculoskeletal: nl extremities to inspection Results Result Diagram: 02/08/17 0635 02/08/17 0635 Results 24 hrs Laboratory Tests Test 02/08/17 06:35 White Blood Count 5.8 Red Blood Count 2.37 L Hemoglobin 7.7 L Hematocrit 24.7 L Mean Corpuscular Volume 104.2 H Mean Corpuscular Hemoglobin 32.5 Mean Corpuscular Hemoglobin Concent 31.2 L Red Cell Distribution Width 14.9 H Platelet Count 141 Mean Platelet Volume 10.6 H Neutrophils % 70.1 Lymphocytes % 16.4 Monocytes % 5.7 Eosinophils % 7.1 H Basophils % 0.2 Nucleated Red Blood Cells % 0.0 Neutrophils # 4.1 Lymphocytes # 1.0 Monocytes # 0.3 Eosinophils # 0.4 Basophils # 0.0 Nucleated Red Blood Cells # 0.0 Sodium Level 141 Potassium Level 3.7 Chloride Level 108 # Carbon Dioxide Level 26 Anion Gap 11 Blood Urea Nitrogen 12 Creatinine 1.53 H Glucose Level 105 Calcium Level 9.2 Phosphorus Level 2.9 Magnesium Level 2.1 Medications Medications Current Medications Ondansetron HCl 4 mg 4 mg Q6H PRN IV NAUSEA AND/OR VOMITING Last administered on 02/07/17t 12:32; Admin Dose 4 MG; Start 02/04/17 at 00:00 Levofloxacin/ Dextrose (Levaquin 500mg/ D5W 100 ml (Pmx)) 100 ml @ 100 mls/hr Q48H IVPB Last administered on 02/07/17 22:19; Admin Dose 100 MLS/HR; Start at 22:30 Aspirin (Aspirin) 81 mg DAILY PO Last administered on 02/08/17 09:24; Admin Dose 81 MG; Start 02/04/17 at 13:30 Hydralazine HCl (Apresoline) 10 mg Q6H PRN IV SBP>160; Start 02/05/17 at 18:00 Amantadine HCl (Symmetrel) 100 mg BID PO Last administered on 02/08/17 09:24; Admin Dose 100 MG; Start 02/05/17 at 21:00 Carbidopa/Levodopa (Sinemet (25/ 100)) 1 tab TID PO Last administered on 09:24; Admin Dose 1 TAB; Start 02/05/17 at 21:00 Doxazosin Mesylate (Cardura) 2 mg QHS PO Last administered on 02/07/17 20:54; Admin Dose 2 MG; Start 02/05/17 at 21:00 Pramipexole (Mirapex) 1 mg BID PO Last administered on 02/08/17 09:24; Admin Dose 1 MG; Start 02/05/17 at 21:00 Quetiapine Fumarate (Seroquel) 125 mg HS PO Last administered on 02/07/17 20: 53; Admin Dose 125 MG; Start 02/05/17 at 21:00 Ursodiol (Actigall) 300 mg DAILY PO Last administered on 02/08/17 09:24; Admin Dose 300 MG; Start 02/06/17 at 09:00 Famotidine 20 mg 20 mg DAILY PO Last administered on 02/08/17 09:24; Admin Dose 20 MG; Start 02/06/17 at 09:00 Vancomycin HCl (Vancocin) 250 ml @ 125 mls/hr Q36H IVPB Last administered on 20:54; Admin Dose 125 MLS/HR; Start 02/06/17 at 09:00 Pantoprazole (Protonix Tab) 40 mg DAILY@06 PO Last administered on 6/18/17at 05 :08; Admin Dose 40 MG; Start 02/07/17 at 06:00 MORA MUKHERJEE MD Feb 08, 2017 12:17
[2017-02-08] MEDS ORDERED: LORAZEPAM 2 MG INJ ONE (12:24)
[2017-02-08] MEDS: LORAZEPAM 2 MG INJ IV PRN ×2 (12:36→18:36)
--- NOTE | 2017-02-08 16:39 | PN ---
Date/Time of Note Date/Time of Note DATE: 02/08/17 TIME: 16:36 Assessment/Plan VTE Prophylaxis VTE Prophylaxis Intervention: SCD's Assessment/Plan Chief Complaint/Hosp Course 1. Non-ST elevation myocardial infarction. Most probably type 2 event in the setting of underlying worsening renal function and underlying sepsis. Status post evaluation by cardiology. 2-D echocardiogram showing preserved left ventricular ejection fraction. 2. Acute on chronic kidney injury. Continue IV fluids. Monitor intake and output closely. Avoid nephrotoxic medications. Being followed by nephrology. 3. Sepsis with underlying urinary tract infection and healthcare-associated pneumonia. No evidence of any septic shock. Continue antibiotics. 4. Acute encephalopathy. Most probably metabolic in origin. Brain CT scan negative for any acute intracranial findings. The patient is back to baseline with antibiotic management. 5. Parkinson's disease. Continue anti-parkinsonian medications. 6. Essential hypertension. Continue antihypertensives. 7. Normocytic normochromic anemia. Etiology unclear. Will monitor hemoglobin and hematocrit closely. We will transfuse as needed. 8. Hypernatremia. The patient's IV fluids have been changed to D5W as per nephrology. 9. Fluid, electrolytes and nutrition. Mechanical soft diet with thin liquids, no straw. 10. Deep venous thrombosis prophylaxis. Bilateral sequential compression devices. 11. Gastrointestinal prophylaxis. Proton pump inhibitors. PLAN: Continue antibiotics. Monitor renal function. Monitor on telemetry floor. Repeat H&H. Case discussed with Dr. Oropeza. Problems: Subjective 24 Hr Interval Summary Free Text/Dictation The patient was agitated in the morning. The patient remains on bilateral soft wrist restraints Exam/Review of Systems Vital Signs Vitals Vital Signs Date Time Temp Pulse Resp B/P Pulse Ox O2 Delivery O2 Flow Rate FiO2 02/08/17 16:22 97.6 91 16 171/75 96 02/08/17 16:04 Nasal Cannula 3.0 Intake and Output 02/07/17 02/07/17 02/08/17 15:00 23:00 07:00 Intake Total 1100 ml Output Total 450 ml Balance 650 ml Exam GENERAL: This is an 81-year-old male patient lying in bed in no apparent distress. HEENT: Head normocephalic and atraumatic. Eyes: Anicteric sclerae. Conjunctivae clear. ENT: Nasal septum is midline. Oral mucosa is dry. Poor dentition. NECK: Supple. No JVD noticed. RESPIRATORY: Bilaterally diminished breath sounds. No adventitious breath sounds heard. No use of accessory muscles for respiration. CARDIAC: S1, S2 heard. No murmurs. ABDOMEN: Soft, nontender and nondistended. Bowel sounds positive in all 4 quadrants. GENITOURINARY: Deferred. EXTREMITIES: No cyanosis, no clubbing, no edema. Peripheral pulses are palpable. NEUROLOGIC: The patient is awake and alert. The patient has underlying Parkinson's disease. Results Result Diagram: 02/08/17 0635 02/08/17 0635 Results 24 hrs Laboratory Tests Test 02/08/17 06:35 White Blood Count 5.8 Red Blood Count 2.37 L Hemoglobin 7.7 L Hematocrit 24.7 L Mean Corpuscular Volume 104.2 H Mean Corpuscular Hemoglobin 32.5 Mean Corpuscular Hemoglobin Concent 31.2 L Red Cell Distribution Width 14.9 H Platelet Count 141 Mean Platelet Volume 10.6 H Neutrophils % 70.1 Lymphocytes % 16.4 Monocytes % 5.7 Eosinophils % 7.1 H Basophils % 0.2 Nucleated Red Blood Cells % 0.0 Neutrophils # 4.1 Lymphocytes # 1.0 Monocytes # 0.3 Eosinophils # 0.4 Basophils # 0.0 Nucleated Red Blood Cells # 0.0 Sodium Level 141 Potassium Level 3.7 Chloride Level 108 # Carbon Dioxide Level 26 Anion Gap 11 Blood Urea Nitrogen 12 Creatinine 1.53 H Glucose Level 105 Calcium Level 9.2 Phosphorus Level 2.9 Magnesium Level 2.1 Medications Medications Current Medications Ondansetron HCl 4 mg 4 mg Q6H PRN IV NAUSEA AND/OR VOMITING Last administered on 02/07/17 12:32; Admin Dose 4 MG; Start 02/04/17 at 00:00 Levofloxacin/ Dextrose (Levaquin 500mg/ D5W 100 ml (Pmx)) 100 ml @ 100 mls/hr Q48H IVPB Last administered on 02/07/17 22:19; Admin Dose 100 MLS/HR; Start at 22:30 Aspirin (Aspirin) 81 mg DAILY PO Last administered on 02/08/17 09:24; Admin Dose 81 MG; Start 02/04/17 at 13:30 Hydralazine HCl (Apresoline) 10 mg Q6H PRN IV SBP>160; Start 02/05/17 at 18:00 Amantadine HCl (Symmetrel) 100 mg BID PO Last administered on 02/08/17 09:24; Admin Dose 100 MG; Start 02/05/17 at 21:00 Carbidopa/Levodopa (Sinemet (25/ 100)) 1 tab TID PO Last administered on 09:24; Admin Dose 1 TAB; Start 02/05/17 at 21:00 Doxazosin Mesylate (Cardura) 2 mg QHS PO Last administered on 02/07/17 20:54; Admin Dose 2 MG; Start 02/05/17 at 21:00 Pramipexole (Mirapex) 1 mg BID PO Last administered on 02/08/17 09:24; Admin Dose 1 MG; Start 02/05/17 at 21:00 Quetiapine Fumarate (Seroquel) 125 mg HS PO Last administered on 02/07/17 20: 53; Admin Dose 125 MG; Start 02/05/17 at 21:00 Ursodiol (Actigall) 300 mg DAILY PO Last administered on 02/08/17 09:24; Admin Dose 300 MG; Start 02/06/17 at 09:00 Famotidine 20 mg 20 mg DAILY PO Last administered on 02/08/17 09:24; Admin Dose 20 MG; Start 02/06/17 at 09:00 Vancomycin HCl (Vancocin) 250 ml @ 125 mls/hr Q36H IVPB Last administered on 20:54; Admin Dose 125 MLS/HR; Start 02/06/17 at 09:00 Pantoprazole (Protonix Tab) 40 mg DAILY@06 PO Last administered on 02/08/17 05 :08; Admin Dose 40 MG; Start 02/07/17 at 06:00 Lorazepam (Ativan) 1 mg Q6H PRN IV AGITATION Last administered on 02/08/17 12: 36; Admin Dose 1 MG; Start 02/08/17 at 12:30 Miscellaneous Information (*Rx Drug Level Order Reminder*) VANCOMYCIN TROUGH AT 0800 ONCE ONCE XX ; Start 02/09/17 at 08:00; Stop 02/09/17 at 08:01 DINORA WHATLEY NP Feb 08, 2017 16:39
[2017-02-08 17:41] LABS: HEMATOCRIT 25.2 % (42.0-52.0)
[2017-02-08] MEDS: DOXAZOSIN 2 MG TAB PO SCH (20:54)
[2017-02-08] MEDS: QUETIAPINE 25 MG TAB PO SCH (20:54)
[2017-02-09] VITALS (18 sets, daily range): BP systolic 118–182; BP diastolic 59–88; PULSE 74–85; RESP 18–21
[2017-02-09] MEDS: PANTOPRAZOLE (EC) 40 MG TAB PO SCH (04:07)
[2017-02-09 07:56] LABS: ADD SCAN DIFF NO
[2017-02-09 07:59] LABS: BASOPHILS % 0.2 % (0.0-2.0); EOSINOPHILS # 0.4 10^3/ul (0.0-0.5); EOSINOPHILS % 7.6 % (0.0-7.0); HEMATOCRIT 27.7 % (42.0-52.0); HEMOGLOBIN 8.7 g/dl (14.0-18.0); LYMPHOCYTES # 0.9 10^3/ul (0.8-2.9); LYMPHOCYTES % 16.4 % (15.0-51.0); MEAN CORPUSCULAR HEMOGLOBIN 32.8 pg (29.0-33.0); MEAN CORPUSCULAR HGB CONC 31.4 g/dl (32.0-37.0); MEAN CORPUSCULAR VOLUME 104.5 fl (82.0-101.0); MEAN PLATELET VOLUME 9.9 fl (7.4-10.4); MONOCYTE # 0.3 10^3/ul (0.3-0.9); MONOCYTES % 5.4 % (0.0-11.0); NEUTROPHIL # 3.9 10^3/ul (1.6-7.5); PLATELET COUNT 134 10^3/UL (140-415); RED BLOOD COUNT 2.65 10^6/ul (4.70-6.10); RED CELL DISTRIBUTION WIDTH 14.7 % (11.5-14.5); WHITE BLOOD COUNT 5.6 10^3/ul (4.8-10.8)
[2017-02-09] MEDS: CALCIUM CARBONATE 500 MG CHEW TAB PO SCH ×3 (08:15→17:58)
[2017-02-09] MEDS: CARBIDOPA/LEVODOPA (25/100) TAB PO SCH ×3 (08:15→20:54)
[2017-02-09] MEDS: AMANTADINE 100 MG CAP PO SCH ×2 (08:15→20:54)
[2017-02-09] MEDS: FAMOTIDINE 20 MG TAB PO SCH (08:16)
[2017-02-09] MEDS: PRAMIPEXOLE 1 MG TAB PO SCH ×2 (08:16→20:54)
[2017-02-09] MEDS: URSODIOL 300 MG CAP PO SCH (08:16)
[2017-02-09] MEDS: ASPIRIN 81 MG TAB PO SCH (08:16)
[2017-02-09] MEDS: VANCOMYCIN 1 GM in NS 250 ML IVPB SCH (08:17)
[2017-02-09 08:20] LABS: MAGNESIUM 2.1 mg/dl (1.7-2.5); PHOSPHORUS 3.3 mg/dl (2.5-4.9)
[2017-02-09 08:22] LABS: CALCIUM 9.1 mg/dl (8.4-10.2); CREATININE 1.58 mg/dl (0.61-1.24); POTASSIUM 3.5 mmol/L (3.5-5.1)
[2017-02-09] MEDS ORDERED: VANCOMYCIN 1 GM in NS 250 ML IVPB SCH (09:00)
--- NOTE | 2017-02-09 10:17 | PN ---
Date/Time of Note Date/Time of Note DATE: 02/09/17 TIME: 10:16 Assessment/Plan VTE Prophylaxis VTE Prophylaxis Intervention: SCD's Lines/Catheters IV [facility]ter Type (from [facility]): Peripheral IV Urinary Cath still in place: Yes Reason Cath still needed: other (indicate) Assessment/Plan Chief Complaint/Hosp Course 1. Non-ST elevation myocardial infarction. Most probably type 2 event in the setting of underlying worsening renal function and underlying sepsis. Status post evaluation by cardiology. 2-D echocardiogram showing preserved left ventricular ejection fraction. 2. Acute on chronic kidney injury. Continue IV fluids. Monitor intake and output closely. Avoid nephrotoxic medications. Being followed by nephrology. 3. Sepsis with underlying urinary tract infection and healthcare-associated pneumonia. No evidence of any septic shock. Continue antibiotics. 4. Acute encephalopathy. Most probably metabolic in origin. Brain CT scan negative for any acute intracranial findings. The patient is back to baseline with antibiotic management. 5. Parkinson's disease. Continue anti-parkinsonian medications. 6. Essential hypertension. Continue antihypertensives. 7. Normocytic normochromic anemia. Etiology unclear. Will monitor hemoglobin and hematocrit closely. We will transfuse as needed. 8. Hypernatremia. The patient's IV fluids have been changed to D5W as per nephrology. 9. Fluid, electrolytes and nutrition. Mechanical soft diet with thin liquids, no straw. 10. Deep venous thrombosis prophylaxis. Bilateral sequential compression devices. 11. Gastrointestinal prophylaxis. Proton pump inhibitors. PLAN: Continue antibiotics. Monitor renal function. Monitor on telemetry floor. The patient will be transferred to care. Facility for further management if a bed is available. Case discussed with Dr. Archuleta. Problems: Subjective 24 Hr Interval Summary Free Text/Dictation Patient has been less agitated over last night. However, he has been anxious as per the RN. Exam/Review of Systems Vital Signs Vitals Vital Signs Date Time Temp Pulse Resp B/P Pulse Ox O2 Delivery O2 Flow Rate FiO2 02/09/17 09:41 Nasal Cannula 3.0 02/09/17 08:27 98.1 82 18 182/72 100 Intake and Output 02/08/17 02/08/17 02/09/17 15:00 23:00 07:00 Intake Total 240 ml Output Total 1000 ml 450 ml Balance -1000 ml -210 ml Exam GENERAL: This is an 81-year-old male patient lying in bed in no apparent distress. HEENT: Head normocephalic and atraumatic. Eyes: Anicteric sclerae. Conjunctivae clear. ENT: Nasal septum is midline. Oral mucosa is dry. Poor dentition. NECK: Supple. No JVD noticed. RESPIRATORY: Bilaterally diminished breath sounds. No adventitious breath sounds heard. No use of accessory muscles for respiration. CARDIAC: S1, S2 heard. No murmurs. ABDOMEN: Soft, nontender and nondistended. Bowel sounds positive in all 4 quadrants. GENITOURINARY: Deferred. EXTREMITIES: No cyanosis, no clubbing, no edema. Peripheral pulses are palpable. NEUROLOGIC: The patient is awake and alert. The patient has underlying Parkinson's disease. Results Result Diagram: 02/09/17 0745 02/09/17 0745 Results 24 hrs Laboratory Tests Test 02/08/17 16:28 02/09/17 07:45 Hemoglobin 8.0 L 8.7 L Hematocrit 25.2 L 27.7 L White Blood Count 5.6 Red Blood Count 2.65 L Mean Corpuscular Volume 104.5 H Mean Corpuscular Hemoglobin 32.8 Mean Corpuscular Hemoglobin Concent 31.4 L Red Cell Distribution Width 14.7 H Platelet Count 134 L Mean Platelet Volume 9.9 Neutrophils % 70.0 Lymphocytes % 16.4 Monocytes % 5.4 Eosinophils % 7.6 H Basophils % 0.2 Nucleated Red Blood Cells % 0.0 Neutrophils # 3.9 Lymphocytes # 0.9 Monocytes # 0.3 Eosinophils # 0.4 Basophils # 0.0 Nucleated Red Blood Cells # 0.0 Sodium Level 142 Potassium Level 3.5 Chloride Level 110 Carbon Dioxide Level 27 Anion Gap 9 Blood Urea Nitrogen 8 Creatinine 1.58 H Glucose Level 95 Calcium Level 9.1 Phosphorus Level 3.3 Magnesium Level 2.1 Vancomycin Level Trough 8.9 L Medications Medications Current Medications Ondansetron HCl (Zofran Inj) 4 mg Q6H PRN IV NAUSEA AND/OR VOMITING Last administered on 02/07/17 12:32; Admin Dose 4 MG; Start 02/04/17 at 00:00 Aspirin (Aspirin) 81 mg DAILY PO Last administered on 02/09/17 08:16; Admin Dose 81 MG; Start 02/04/17 at 13:30 Hydralazine HCl (Apresoline) 10 mg Q6H PRN IV SBP>160; Start 02/05/17 at 18:00 Amantadine HCl (Symmetrel) 100 mg BID PO Last administered on 02/09/17 08:15; Admin Dose 100 MG; Start 02/05/17 at 21:00 Carbidopa/Levodopa (Sinemet (25/ 100)) 1 tab TID PO Last administered on 08:15; Admin Dose 1 TAB; Start 02/05/17 at 21:00 Doxazosin Mesylate (Cardura) 2 mg QHS PO Last administered on 02/08/17 20:54; Admin Dose 2 MG; Start 02/05/17 at 21:00 Pramipexole (Mirapex) 1 mg BID PO Last administered on 02/09/17 08:16; Admin Dose 1 MG; Start 02/05/17 at 21:00 Quetiapine Fumarate (Seroquel) 125 mg HS PO Last administered on 02/08/17 20: 54; Admin Dose 125 MG; Start 02/05/17 at 21:00 Ursodiol (Actigall) 300 mg DAILY PO Last administered on 02/09/17 08:16; Admin Dose 300 MG; Start 02/06/17 at 09:00 Famotidine (Pepcid) 20 mg DAILY PO Last administered on 02/09/17 08:16; Admin Dose 20 MG; Start 02/06/17 at 09:00 Pantoprazole (Protonix Tab) 40 mg DAILY@06 PO Last administered on 02/08/17 05 :08; Admin Dose 40 MG; Start 02/07/17 at 06:00 Lorazepam 1 mg 1 mg Q6H PRN IV AGITATION Last administered on 02/08/17 18:36; Admin Dose 1 MG; Start 02/08/17 at 12:30 Levofloxacin/ Dextrose 50 ml @ 50 mls/hr Q24H IVPB ; Start 02/09/17 at 12:00 Vancomycin HCl (Vancocin) 250 ml @ 125 mls/hr Q24H IVPB ; Start 02/10/17 at 09: 00 DINORA WHATLEY NP Feb 09, 2017 10:17
--- NOTE | 2017-02-09 10:44 | PDOCDIS ---
Discharge Instructions DIAGNOSIS Discharge Diagnosis: Acute kidney injury. Urinary tract infection CONDITION Patient Condition: Stable HOME CARE INSTRUCTIONS: Special Diet: Mechanical soft diet. Aspiration precautions. OTHER ORDERS: Other Orders: 1. Medications as per medication list. DINORA WHATLEY NP Feb 09, 2017 10:44
[2017-02-09] MEDS ORDERED: BISACODYL (EC) 5 MG TAB PO PRN (12:00)
[2017-02-09] MEDS: LEVOFLOXACIN 250MG/D5W (PMX) 50 ML IVPB SCH (12:08)
[2017-02-09] MEDS: POLYETHYLENE GLYCOL 17 GM PACKET PO SCH ×2 (12:08→20:53)
--- NOTE | 2017-02-09 12:45 | DS ---
DATE OF ADMISSION: 02/03/2017 DATE OF DISCHARGE: 02/09/2017 (Transferred to a capitated facility for further management). DIAGNOSES: 1. [id number]-jzirboyaj myocardial infarction, most probably type 2 event. 2. Acute on chronic kidney injury. 3. Sepsis with underlying urinary tract infection and healthcare-associated pneumonia. 4. Acute on chronic encephalopathy. 5. Parkinson's disease. 6. Essential hypertension. 7. Normocytic, normochromic anemia. 8. Hypernatremia. 9. Dyslipidemia. 10. Coronary artery disease. CONSULTS: 1. Dr. James Lee, Nephrology 2. Dr. Reese Fletcher, Nephrology 3. Dr. Gonzalo Orosco, Cardiology 4. Dr. Michelle Lerma, Palliative Care HOSPITAL COURSE: This is an 81-year-old male with past medical history of CAD, status post CABG, CKD stage III, hyperlipidemia, hypertension, and severe Parkinson's disease who was brought in by ambulance with his for altered mental status. This has been going on for about a 2 to 3 day period. The patient was also reported to have shortness of breath for 2 days without any cough. He was basically admitted to [facility] from 12/25/2016 to 07/2017 for similar symptoms. He was diagnosed with dehydration, acute renal failure, but did not require dialysis. As per the patient's family, the patient has not been sleeping well, and has been agitated. The patient was not having any fevers or chills. In the emergency room, the patient was noticed to have a BUN and creatinine of 30 and 3.5 respectively. The patient was also noticed to have troponin I of 0.72. Provided the patient's history of present illness, his comorbidities, and the diagnostic findings, a clinical decision was made to admit the patient to inpatient setting to have him further evaluated. The patient was admitted to inpatient telemetry floor. A cardiology consult and nephrology consult was called. The patient was evaluated by Cardiology. The patient underwent a 2-D echocardiogram that showed a preserved left ventricular ejection fraction. Cardiology concluded that the patient's elevated troponins could be most probably secondary to a type 2 event from demand ischemia secondary to underlying sepsis and worsening renal function. The patient was maintained on aspirin for his history of CAD. The patient was being followed by nephrology for his worsening renal function. The patient had no evidence of any hyperkalemia or uremia that necessitated any hemodialysis. The patient was maintained on IV hydration. Nephrotoxic drugs were used with caution on this patient. The patient was noticed to have sepsis with underlying coagulase-negative Staphylococcus urinary tract infection. The patient also had infiltrate on chest x-ray that was concluded to be healthcare- associated pneumonia. The patient was treated accordingly. The patient had no evidence of any septic shock. Regarding the patient's encephalopathy, the patient underwent a brain CT scan that was negative for any acute intracranial findings. The patient was maintained on p.r.n. Ativan. The patient was maintained on mood stabilizers. The patient's acute encephalopathy was concluded to be secondary to underlying sepsis and electrolyte imbalances. The patient has underlying Parkinson's disease. The patient was maintained on anti-parkinsonian medications. The patient has underlying essential hypertension. He was maintained on antihypertensives for the same. The patient was noticed to have normocytic normochromic anemia. The patient's iron levels and ferritin were within normal limits, although he had some low TIBC. The patient did not require any blood transfusion during this hospitalization. The patient was also noticed to have dyslipidemia. A low cholesterol diet was advised. The patient was also noticed to have hypernatremia. This was resolved with IV D5. The patient also underwent a renal ultrasound that showed 3 simple cysts in the left kidney. A review of the patient's imaging from other hospital showed 3 lesions in the left kidney and one was for possible renal cell carcinoma. This was discussed with the patient's fitting room inspector. Further workup will be done as outpatient. The patient's mental status was not improving significantly. The patient still has episodes of agitation that requires chemical and mechanical restraints. The patient is not stable enough to be discharged home. The patient will be transferred to the [facility] for further management. DISCHARGE DISPOSITION AND PLAN: The patient will be discharged to the [facility] for further management. The patient will take medications as per prescription. The patient will remain a DNR as per the patient's family. CONDITION AT DISCHARGE: Stable. DISCHARGE MEDICATIONS: 1. Vancomycin IV per pharmacy. 2. Levaquin 250 mg IV piggyback daily. 3. Ativan 1 mg IV q.6 hours p.r.n. agitation. 4. Protonix 40 mg p.o. daily. 5. Actigall 300 mg p.o. daily. 6. Famotidine 20 mg p.o. daily. 7. Calcium carbonate 500 mg after meals. 8. Symmetrel 100 mg p.o. b.i.d. 9. Sinemet 25/100 one tablet p.o. t.i.d. 10. Cardura 2 mg p.o. at bedtime. 11. Pramipexole 1 mg p.o. b.i.d. 12. Seroquel 125 mg p.o. at bedtime. 13. Aspirin 81 mg p.o. daily. PERTINENT LABORATORY AND DIAGNOSTIC DATA: 1. Renal ultrasound. Three simple cysts in the left kidney. 2. Chest x-ray with bibasilar atelectasis versus pneumonia, mildly increased when compared to the prior examination. Low lung volumes. Mild cardiomegaly and aortic atherosclerosis. Fracture deformity of the right proximal humerus. 3. Brain CT scan: No evidence of acute intracranial hemorrhage, infarcts, or acute intracranial pathology. Mild chronic microvascular ischemic disease and mild diffuse volume loss. Mild atherosclerotic vascular disease. 4. Urine culture from 02/03/2017 positive for coagulase-negative Staphylococcus. 5. Blood cultures x2 negative. 6. Latest CBC: WBC 5.6, hemoglobin 8.7, hematocrit 27.7, platelet count 134. 7. Latest BMP: Sodium 142, potassium 3.5, chloride 100, carbon dioxide 27, anion gap 9, BUN 8, creatinine 1.5, glucose 96, calcium 9.1, phosphorus 3.3, magnesium 2.1. 8. Iron panel: Iron 63, TIBC 223, iron saturation 28, ferritin 659. 9. Fasting lipid panel: Triglycerides 124, total cholesterol 209, LDL 144, HDL 40. 10. Hemoglobin A1c 6.0. At this time, I would like to thank all the consultants for seeing the patient and providing clinical recommendations. The case and management of this patient was fully discussed with Dr. Murillo. Approximately 40 minutes was spent on coordinating the transfer process on this patient. DINORA MURILLO MD, AM/KEIRY Conf#: [id number] DID#: [id number]
--- NOTE | 2017-02-09 19:55 | CONS ---
Date/Time of Note Date/Time of Note DATE: 02/09/17 TIME: 19:52 Assessment/Plan Assessment/Plan Chief Complaint/Hosp Course Spoke to sister at bedside Problems: Additional Assessment/Plan Spoke at [facility] with sister & at the bedside re management of anemia with CKD Not to worry if pt is on palliative care however. Consultation Date/Type/Reason Admit Date/Time Feb 03, 2017 at 21:10 Initial Consult Date 02/04/17 Type of Consultation: Renal Referring Provider: FANNIE RUFF 24 HR Interval Summary Free Text/Dictation Remains lethargic Exam/Review of Systems Vital Signs Vitals Vital Signs Date Time Temp Pulse Resp B/P Pulse Ox O2 Delivery O2 Flow Rate FiO2 02/09/17 18:00 97.9 82 18 127/88 93 02/09/17 09:41 Nasal Cannula 3.0 Intake and Output 02/08/17 02/08/17 02/09/17 15:00 23:00 07:00 Intake Total 240 ml Output Total 1000 ml 450 ml Balance -1000 ml -210 ml Exam Constitutional: alert, oriented, other (sluggish), well developed Psych: nl mood/affect, no complaints Head: atraumatic, normocephalic Eyes: EOMI, PERRL, nl conjunctiva, nl lids, nl sclera ENMT: nl external ears & nose, nl lips & teeth, nl nasal mucosa & septum Neck: non-tender, supple Respiratory: clear to auscultation, normal air movement Cardiovascular: nl pulses, regular rate and rhythm Gastrointestinal: nl liver, spleen, non-tender, soft Musculoskeletal: nl extremities to inspection, nl gait and stance Extremities: normal pulses Neurological: NURSING STAFF DEVELOPMENT COORDINATOR II-XII intact, nl mental status, nl speech, nl strength Skin: nl turgor, No rash or lesions Lymph: nl lymph nodes Results Hct is stable. BUN/Creat has imroved the may have reached baseline Result Diagram: 02/09/17 0745 02/09/17 0745 Results 24 hrs Laboratory Tests Test 02/09/17 07:45 White Blood Count 5.6 Red Blood Count 2.65 L Hemoglobin 8.7 L Hematocrit 27.7 L Mean Corpuscular Volume 104.5 H Mean Corpuscular Hemoglobin 32.8 Mean Corpuscular Hemoglobin Concent 31.4 L Red Cell Distribution Width 14.7 H Platelet Count 134 L Mean Platelet Volume 9.9 Neutrophils % 70.0 Lymphocytes % 16.4 Monocytes % 5.4 Eosinophils % 7.6 H Basophils % 0.2 Nucleated Red Blood Cells % 0.0 Neutrophils # 3.9 Lymphocytes # 0.9 Monocytes # 0.3 Eosinophils # 0.4 Basophils # 0.0 Nucleated Red Blood Cells # 0.0 Sodium Level 142 Potassium Level 3.5 Chloride Level 110 Carbon Dioxide Level 27 Anion Gap 9 Blood Urea Nitrogen 8 Creatinine 1.58 H Glucose Level 95 Calcium Level 9.1 Phosphorus Level 3.3 Magnesium Level 2.1 Vancomycin Level Trough 8.9 L Medications Medications Current Medications Ondansetron HCl (Zofran Inj) 4 mg Q6H PRN IV NAUSEA AND/OR VOMITING Last administered on 02/07/17 12:32; Admin Dose 4 MG; Start 02/04/17 at 00:00 Aspirin (Aspirin) 81 mg DAILY PO Last administered on 02/09/17 08:16; Admin Dose 81 MG; Start 02/04/17 at 13:30 Hydralazine HCl (Apresoline) 10 mg Q6H PRN IV SBP>160; Start 02/05/17 at 18:00 Amantadine HCl (Symmetrel) 100 mg BID PO Last administered on 02/09/17 08:15; Admin Dose 100 MG; Start 02/05/17 at 21:00 Carbidopa/Levodopa (Sinemet (25/ 100)) 1 tab TID PO Last administered on 12:08; Admin Dose 1 TAB; Start 02/05/17 at 21:00 Doxazosin Mesylate (Cardura) 2 mg QHS PO Last administered on 02/08/17 20:54; Admin Dose 2 MG; Start 02/05/17 at 21:00 Pramipexole (Mirapex) 1 mg BID PO Last administered on 02/09/17 08:16; Admin Dose 1 MG; Start 02/05/17 at 21:00 Quetiapine Fumarate (Seroquel) 125 mg HS PO Last administered on 02/08/17 20: 54; Admin Dose 125 MG; Start 02/05/17 at 21:00 Ursodiol (Actigall) 300 mg DAILY PO Last administered on 02/09/17 08:16; Admin Dose 300 MG; Start 02/06/17 at 09:00 Famotidine (Pepcid) 20 mg DAILY PO Last administered on 02/09/17 08:16; Admin Dose 20 MG; Start 02/06/17 at 09:00 Pantoprazole 40 mg 40 mg DAILY@06 PO Last administered on 02/08/17 05:08; Admin Dose 40 MG; Start 02/07/17 at 06:00 Levofloxacin/ Dextrose 50 ml @ 50 mls/hr Q24H IVPB Last administered on 12:08; Admin Dose 50 MLS/HR; Start 02/09/17 at 12:00 Vancomycin HCl (Vancocin) 250 ml @ 125 mls/hr Q24H IVPB ; Start 02/10/17 at 09: 00 Polyethylene Glycol (Miralax) 17 gm BID PO Last administered on 02/09/17 12:08 ; Admin Dose 17 GM; Start 02/09/17 at 12:00 Bisacodyl (Dulcolax) 10 mg DAILY PRN PO CONSTIPATION Last administered on 12:08; Admin Dose 10 MG; Start 02/09/17 at 12:00 Lorazepam (Ativan) 1 mg Q6H PRN PO AGITATION; Start 02/09/17 at 17:00 JASPER JAUREGUI MD Feb 09, 2017 19:55
[2017-02-09] MEDS: DOXAZOSIN 2 MG TAB PO SCH (20:55)
[2017-02-09] MEDS: QUETIAPINE 25 MG TAB PO SCH (20:56)
[2017-02-10] VITALS (14 sets, daily range): BP systolic 123–166; BP diastolic 52–90; PULSE 69–95; RESP 16–20
[2017-02-10] MEDS: LORAZEPAM 1 MG TAB PO PRN ×2 (01:26→14:50)
[2017-02-10] MEDS: PANTOPRAZOLE (EC) 40 MG TAB PO SCH (06:37)
[2017-02-10] MEDS: POLYETHYLENE GLYCOL 17 GM PACKET PO SCH (08:08)
[2017-02-10] MEDS: FAMOTIDINE 20 MG TAB PO SCH (08:09)
[2017-02-10] MEDS: CARBIDOPA/LEVODOPA (25/100) TAB PO SCH ×2 (08:09→13:00)
[2017-02-10] MEDS: ASPIRIN 81 MG TAB PO SCH (08:09)
[2017-02-10] MEDS: AMANTADINE 100 MG CAP PO SCH (08:09)
[2017-02-10] MEDS: CALCIUM CARBONATE 500 MG CHEW TAB PO SCH ×3 (08:09→17:59)
[2017-02-10] MEDS: URSODIOL 300 MG CAP PO SCH (08:09)
[2017-02-10] MEDS: PRAMIPEXOLE 1 MG TAB PO SCH (08:09)
[2017-02-10 08:15] LABS: ADD SCAN DIFF NO
[2017-02-10 08:21] LABS: BASOPHILS % 0.4 % (0.0-2.0); EOSINOPHILS # 0.4 10^3/ul (0.0-0.5); EOSINOPHILS % 7.3 % (0.0-7.0); HEMATOCRIT 26.4 % (42.0-52.0); HEMOGLOBIN 8.4 g/dl (14.0-18.0); LYMPHOCYTES % 18.3 % (15.0-51.0); MEAN CORPUSCULAR HEMOGLOBIN 32.7 pg (29.0-33.0); MEAN CORPUSCULAR HGB CONC 31.8 g/dl (32.0-37.0); MEAN CORPUSCULAR VOLUME 102.7 fl (82.0-101.0); MEAN PLATELET VOLUME 10.9 fl (7.4-10.4); MONOCYTE # 0.3 10^3/ul (0.3-0.9); MONOCYTES % 6.3 % (0.0-11.0); NEUTROPHIL # 3.5 10^3/ul (1.6-7.5); NEUTROPHILS % 67.3 % (39.0-77.0); PLATELET COUNT 150 10^3/UL (140-415); RED BLOOD COUNT 2.57 10^6/ul (4.70-6.10); RED CELL DISTRIBUTION WIDTH 14.6 % (11.5-14.5); WHITE BLOOD COUNT 5.2 10^3/ul (4.8-10.8)
[2017-02-10 08:46] LABS: CALCIUM 9.4 mg/dl (8.4-10.2); CREATININE 1.38 mg/dl (0.61-1.24); POTASSIUM 3.5 mmol/L (3.5-5.1)
[2017-02-10 08:47] LABS: PHOSPHORUS 2.8 mg/dl (2.5-4.9)
[2017-02-10] MEDS ORDERED: VANCOMYCIN 1 GM in NS 250 ML IVPB SCH (09:00)
[2017-02-10] MEDS: LEVOFLOXACIN 250MG/D5W (PMX) 50 ML IVPB SCH (11:16)
--- NOTE | 2017-02-10 12:06 | CONS ---
Date/Time of Note Date/Time of Note DATE: 02/10/17 TIME: 12:06 Assessment/Plan Assessment/Plan Additional Assessment/Plan 81 yo Male with 1) AMS 2) PNA 3) YULIA on CKD 4) HTN 5) Parkinson Dz 6) Renal Cyst/Lesion, ?RCC Pt with Yulia on CKD likely stage III CKD- which is stable and improved, Now at baseline. No new recommendations Cont current Rx and plan. Thank you for the opportunity to participate in the care of [facility]. Consultation Date/Type/Reason Admit Date/Time Feb 03, 2017 at 21:10 Initial Consult Date 02/05/17 Type of Consultation: Renal Referring Provider: FANNIE RUFF 24 HR Interval Summary Free Text/Dictation NO new complaints, Good UO reported Exam/Review of Systems Vital Signs Vitals Vital Signs Date Time Temp Pulse Resp B/P Pulse Ox O2 Delivery O2 Flow Rate FiO2 02/10/17 11:42 98.3 72 16 149/62 100 02/10/17 04:42 2.0 02/09/17 09:41 Nasal Cannula Intake and Output 02/09/17 02/09/17 02/10/17 15:00 23:00 07:00 Intake Total 300 ml 850 ml 150 ml Output Total 600 ml 900 ml Balance 300 ml 250 ml -750 ml Exam Constitutional: alert, No distress ENMT: mucosa pink and moist Neck: No jvd Respiratory: clear to auscultation Cardiovascular: regular rate and rhythm, No edema Gastrointestinal: non-tender, soft Extremities: No edema Neurological: confused, No lethargic Skin: No diaphoresis Results Result Diagram: 02/10/17 0625 02/10/17 0625 Results 24 hrs Laboratory Tests Test 02/10/17 06:25 White Blood Count 5.2 Red Blood Count 2.57 L Hemoglobin 8.4 L Hematocrit 26.4 L Mean Corpuscular Volume 102.7 H Mean Corpuscular Hemoglobin 32.7 Mean Corpuscular Hemoglobin Concent 31.8 L Red Cell Distribution Width 14.6 H Platelet Count 150 Mean Platelet Volume 10.9 H Neutrophils % 67.3 Lymphocytes % 18.3 Monocytes % 6.3 Eosinophils % 7.3 H Basophils % 0.4 Nucleated Red Blood Cells % 0.0 Neutrophils # 3.5 Lymphocytes # 1.0 Monocytes # 0.3 Eosinophils # 0.4 Basophils # 0.0 Nucleated Red Blood Cells # 0.0 Sodium Level 145 H Potassium Level 3.5 Chloride Level 109 Carbon Dioxide Level 27 Anion Gap 13 Blood Urea Nitrogen 9 Creatinine 1.38 H Glucose Level 88 Calcium Level 9.4 Phosphorus Level 2.8 Magnesium Level 2.0 Medications Medications Current Medications Ondansetron HCl (Zofran Inj) 4 mg Q6H PRN IV NAUSEA AND/OR VOMITING Last administered on 02/07/17 12:32; Admin Dose 4 MG; Start 02/04/17 at 00:00 Aspirin (Aspirin) 81 mg DAILY PO Last administered on 02/10/17 08:09; Admin Dose 81 MG; Start 02/04/17 at 13:30 Hydralazine HCl (Apresoline) 10 mg Q6H PRN IV SBP>160; Start 02/05/17 at 18:00 Amantadine HCl (Symmetrel) 100 mg BID PO Last administered on 02/10/17 08:09; Admin Dose 100 MG; Start 02/05/17 at 21:00 Carbidopa/Levodopa (Sinemet (25/ 100)) 1 tab TID PO Last administered on 08:09; Admin Dose 1 TAB; Start 02/05/17 at 21:00 Doxazosin Mesylate (Cardura) 2 mg QHS PO Last administered on 02/09/17 20:55; Admin Dose 2 MG; Start 02/05/17 at 21:00 Pramipexole (Mirapex) 1 mg BID PO Last administered on 02/10/17 08:09; Admin Dose 1 MG; Start 02/05/17 at 21:00 Quetiapine Fumarate (Seroquel) 125 mg HS PO Last administered on 02/09/17 20: 56; Admin Dose 125 MG; Start 02/05/17 at 21:00 Ursodiol (Actigall) 300 mg DAILY PO Last administered on 02/10/17 08:09; Admin Dose 300 MG; Start 02/06/17 at 09:00 Famotidine (Pepcid) 20 mg DAILY PO Last administered on 02/10/17 08:09; Admin Dose 20 MG; Start 02/06/17 at 09:00 Pantoprazole 40 mg 40 mg DAILY@06 PO Last administered on 02/10/17 06:37; Admin Dose 40 MG; Start 02/07/17 at 06:00 Levofloxacin/ Dextrose 50 ml @ 50 mls/hr Q24H IVPB Last administered on 11:16; Admin Dose 50 MLS/HR; Start 02/09/17 at 12:00 Vancomycin HCl (Vancocin) 250 ml @ 125 mls/hr Q24H IVPB Last administered on 08:09; Admin Dose 125 MLS/HR; Start 02/10/17 at 09:00 Polyethylene Glycol (Miralax) 17 gm BID PO Last administered on 02/10/17 08:08 ; Admin Dose 17 GM; Start 02/09/17 at 12:00 Bisacodyl (Dulcolax) 10 mg DAILY PRN PO CONSTIPATION Last administered on 12:08; Admin Dose 10 MG; Start 02/09/17 at 12:00 Lorazepam (Ativan) 1 mg Q6H PRN PO AGITATION Last administered on 02/10/17 01: 26; Admin Dose 1 MG; Start 02/09/17 at 17:00 ALYSSA STAUFFER MD Feb 10, 2017 12:06
--- NOTE | 2017-02-10 13:21 | DS ---
DATE OF ADMISSION: 02/03/2017 DATE OF DISCHARGE: 02/09/2017 ADDENDUM Discharge summary addendum to one dictated yesterday on 02/09/2017. It is a transfer. DISCHARGE DIAGNOSES: Include: 1. NSTEMI, type 2 demand ischemia. 2. Acute on chronic kidney injury. 3. Sepsis with underlying UTI and healthcare-associated pneumonia. 4. Acute on chronic encephalopathy. 5. Parkinson's disease. 6. Essential hypertension. 7. Normocytic normochromic anemia. 8. Hypernatremia. 9. Dyslipidemia. 10. Coronary artery disease. Patient still is requiring restraints and still having some issues with mobility and overall function. Needs a video swallow evaluation. I spoke to Dr. Olivas at [facility] about transfer for further care before transferring the patient to SNF for rehab and monitoring any other acute changes at this time. I spoke with the over the phone about the care plan. She agreed with it. No other issues at this time. DISPOSITION: Hopefully to [facility]. Dictated By: ANGIE CABA/KEIRY Conf#: [id number] DID#: [id number]
== END 2017-02-10 18:27 | disposition short-term general hospital (02) | DRG 280 ==
LOC: E/R 17:51 → MS4 21:10 → TEL 02-04 19:57
PROVIDERS: ADMIT Family Medicine; ATTEND Family Medicine
DX: I21.4 Non-ST elevation (NSTEMI) myocardial infarction (principal); A41.9 Sepsis, unspecified organism; J18.9 Pneumonia, unspecified organism; G93.41 Metabolic encephalopathy; N17.9 Acute kidney failure, unspecified; N18.3 Chronic kidney disease, stage 3 (moderate); I13.0 Hypertensive heart and chronic kidney disease with heart failure and stage 1 through stage 4 chronic kidney disease, or unspecified chronic kidney disease; N39.0 Urinary tract infection, site not specified; I25.810 Atherosclerosis of coronary artery bypass graft(s) without angina pectoris; E87.0 Hyperosmolality and hypernatremia; G20 Parkinson's disease; I50.9 Heart failure, unspecified; D64.9 Anemia, unspecified; E78.5 Hyperlipidemia, unspecified; Z66 Do not resuscitate; Z95.1 Presence of aortocoronary bypass graft
CPT/HCPCS: 36415; 70450; 71010; 76775; 80048; 80053; 80061; 80202; 81001; 82550; 82553; 82728; 82962; 83036; 83540; 83605; 83735; 84100; 84153; 84154; 84155; 84300; 84439; 84443; 84484; 85014; 85018; 85025; 85610; 85730; 87040; 87086; 92610; 93005; 93306; 96374; C9113; J0360; J1630; J1956; J2060; J2405; J3370; J7030; J7050; J7070